=== PATIENT | female | born 1935 | race Caucasian/White ===

== ENCOUNTER 2019-08-20 11:41 | Inpatient (IN) | payer MEDICARE ==
[2019-08-20] MEDS ORDERED: SODIUM CHLORIDE 0.9% 500 ML 500 ML IV STA (11:55)
[2019-08-20 12:11] LABS: Basophils # (A) 0.1 k/uL (0-0.2); Basophils % (A) 1 %; Eosinophils # (A) 0.1 k/uL (0-0.7); Eosinophils % (A) 3 %; HCT 41.8 % (34.0-46.0); HGB 13.6 gm/dL (11.4-16.0); Lymphocytes % (A) 20 %; MCHC 32.6 g/dL (31.0-37.0); MCV 91.9 fL (80.0-100.0); Mean Platelet Volume 8.4; Monocytes # (A) 0.4 k/uL (0-1.0); Monocytes % (A) 7 %; Neutrophils # (A) 3.5 k/uL (1.3-7.7); Neutrophils % (A) 68 %; Platelet Count 164 k/uL (150-450); RBC 4.55 m/uL (3.80-5.40); RDW 13.1 % (11.5-15.5); WBC 5.1 k/uL (3.8-10.6)
--- NOTE | 2019-08-20 12:12 | ED ---
General Adult HPI - General Chief complaint: Dizziness Stated complaint: SOB Time Seen by Provider: 08/20/19 11:49 Source: patient, EMS, RN notes reviewed, old records reviewed Mode of arrival: EMS Limitations: no limitations - History of Present Illness Initial comments: 84-year-old female presents for an episode of dyspnea and lightheadedness. Patient was at [facility]. She had walked from her chair and became short of breath and felt very lightheaded. History is limited secondary to patient's baseline mental status. She has no complaints time my evaluation. Denies chest pain or dyspnea. Denies cough. Denies fever or chills. Denies abdominal pain nausea vomiting or diarrhea. Denies lower extremity swelling. Denies any pain complaints. - Related Data Allergies Allergy/AdvReac Type Severity Reaction Status Date / Time No Known Allergies Allergy Verified 08/20/19 11:49 Review of Systems ROS Statement: Those systems with pertinent positive or pertinent negative responses have been documented in the HPI. ROS Other: All systems not noted in ROS Statement are negative. Past Medical History Past Medical History: Atrial Fibrillation, Coronary Artery Disease (CAD), CVA/TIA, Hyperlipidemia, Hypertension, Thyroid Disorder History of Any Multi-Drug Resistant Organisms: None Reported Past Surgical History: No Surgical Hx Reported Past Psychological History: No Psychological Hx Reported Smoking Status: Never smoker Past Alcohol Use History: None Reported Past Drug Use History: None Reported General Exam Limitations: no limitations General appearance: alert, in no apparent distress Head exam: Present: atraumatic, normocephalic Eye exam: Present: normal appearance, PERRL ENT exam: Present: mucous membranes dry Neck exam: Present: normal inspection. Absent: tenderness, meningismus Respiratory exam: Present: normal lung sounds bilaterally. Absent: respiratory distress, wheezes, rales Cardiovascular Exam: Present: regular rate, irregular rhythm GI/Abdominal exam: Present: soft. Absent: distended, tenderness, guarding Back exam: Present: normal inspection Neurological exam: Present: alert, CN II-XII intact. Absent: oriented X3 (2), motor sensory deficit Psychiatric exam: Present: normal affect, normal mood Skin exam: Present: warm, dry, intact. Absent: cyanosis, diaphoretic Course Vital Signs 08/20/19 11:43 Temperature 97.5 F L Pulse Rate 63 Respiratory 18 Rate Blood Pressure 168/83 O2 Sat by Pulse 98 Oximetry EKG Findings - EKG Comments: EKG Findings:: EKG showing sinus rhythm with right bundle-branch block, irregular, rate of 72, IL interval 144, QRS duration 136, QTC 43, no ST segment elevation. Medical Decision Making - Medical Decision Making 84-year-old female with an episode of dyspnea, lightheadedness. Patient denying any complaints. History of dementia and history is limited. EKG showing right bundle branch block, no previous for comparison, no ST segment elevation. There is some ectopy on EKG. Chest x-ray showing a retrocardiac infiltrate. Given this patient is a poor historian. She will be admitted for close monitoring. She is initiated on IV antibiotics. Serial troponins will be obtained. Cardiology will be placed on consult. Echo will be obtained. - Lab Data Result diagrams: 08/20/19 11:50 08/20/19 11:50 Lab Results 08/20/19 08/20/19 08/20/19 Range/Units 11:50 11:50 11:50 WBC 5.1 (3.8-10.6) k/uL RBC 4.55 (3.80-5.40) m/uL Hgb 13.6 (11.4-16.0) gm/dL Hct 41.8 (34.0-46.0) % MCV 91.9 (80.0-100.0) fL MCH 30.0 (25.0-35.0) pg MCHC 32.6 (31.0-37.0) g/dL RDW 13.1 (11.5-15.5) % Plt Count 164 (150-450) k/uL Neutrophils % 68 % Lymphocytes % 20 % Monocytes % 7 % Eosinophils % 3 % Basophils % 1 % Neutrophils # 3.5 (1.3-7.7) k/uL Lymphocytes # 1.0 (1.0-4.8) k/uL Monocytes # 0.4 (0-1.0) k/uL Eosinophils # 0.1 (0-0.7) k/uL Basophils # 0.1 (0-0.2) k/uL PT 10.2 (9.0-12.0) sec INR 1.0 (<1.2) APTT 20.1 L (22.0-30.0) sec Sodium 140 (137-145) mmol/L Potassium 3.6 (3.5-5.1) mmol/L Chloride 105 (98-107) mmol/L Carbon Dioxide 26 (22-30) mmol/L Anion Gap 9 mmol/L BUN 16 (7-17) mg/dL Creatinine 0.84 (0.52-1.04) mg/dL Est GFR (CKD-EPI)AfAm 74 (>60 ml/min/1.73 sqM) Est GFR (CKD-EPI)NonAf 64 (>60 ml/min/1.73 sqM) Glucose 76 (74-99) mg/dL Calcium 9.2 (8.4-10.2) mg/dL Magnesium 2.1 (1.6-2.3) mg/dL Total Bilirubin 0.5 (0.2-1.3) mg/dL AST 28 (14-36) U/L ALT 14 (4-34) U/L Alkaline Phosphatase 68 (38-126) U/L Troponin I (0.000-0.034) ng/mL Total Protein 7.2 (6.3-8.2) g/dL Albumin 3.9 (3.5-5.0) g/dL Urine Color Urine Appearance (Clear) Urine pH (5.0-8.0) Ur Specific [place] (1.001-1.035) Urine Protein (Negative) Urine Glucose (UA) (Negative) Urine Ketones (Negative) Urine Blood (Negative) Urine Nitrite (Negative) Urine Bilirubin (Negative) Urine Urobilinogen (<2.0) mg/dL Ur Leukocyte Esterase (Negative) Urine RBC (0-5) /hpf Urine WBC (0-5) /hpf Ur Squamous Epith Cells (0-4) /hpf Urine Bacteria (None) /hpf Urine Mucus (None) /hpf 08/20/19 08/20/19 Range/Units 11:50 12:30 WBC (3.8-10.6) k/uL RBC (3.80-5.40) m/uL Hgb (11.4-16.0) gm/dL Hct (34.0-46.0) % MCV (80.0-100.0) fL MCH (25.0-35.0) pg MCHC (31.0-37.0) g/dL RDW (11.5-15.5) % Plt Count (150-450) k/uL Neutrophils % % Lymphocytes % % Monocytes % % Eosinophils % % Basophils % % Neutrophils # (1.3-7.7) k/uL Lymphocytes # (1.0-4.8) k/uL Monocytes # (0-1.0) k/uL Eosinophils # (0-0.7) k/uL Basophils # (0-0.2) k/uL PT (9.0-12.0) sec INR (<1.2) APTT (22.0-30.0) sec Sodium (137-145) mmol/L Potassium (3.5-5.1) mmol/L Chloride (98-107) mmol/L Carbon Dioxide (22-30) mmol/L Anion Gap mmol/L BUN (7-17) mg/dL Creatinine (0.52-1.04) mg/dL Est GFR (CKD-EPI)AfAm (>60 ml/min/1.73 sqM) Est GFR (CKD-EPI)NonAf (>60 ml/min/1.73 sqM) Glucose (74-99) mg/dL Calcium (8.4-10.2) mg/dL Magnesium (1.6-2.3) mg/dL Total Bilirubin (0.2-1.3) mg/dL AST (14-36) U/L ALT (4-34) U/L Alkaline Phosphatase (38-126) U/L Troponin I <0.012 (0.000-0.034) ng/mL Total Protein (6.3-8.2) g/dL Albumin (3.5-5.0) g/dL Urine Color Light Yellow Urine Appearance Clear (Clear) Urine pH 7.5 (5.0-8.0) Ur Specific [place] 1.007 (1.001-1.035) Urine Protein Trace H (Negative) Urine Glucose (UA) Negative (Negative) Urine Ketones Negative (Negative) Urine Blood Negative (Negative) Urine Nitrite Negative (Negative) Urine Bilirubin Negative (Negative) Urine Urobilinogen <2.0 (<2.0) mg/dL Ur Leukocyte Esterase Moderate H (Negative) Urine RBC 8 H (0-5) /hpf Urine WBC 19 H (0-5) /hpf Ur Squamous Epith Cells <1 (0-4) /hpf Urine Bacteria Occasional H (None) /hpf Urine Mucus Rare H (None) /hpf Disposition Clinical Impression: Dehydration, Pneumonia Disposition: ADMITTED IP TO THIS HOSP Condition: Stable Is patient prescribed a controlled substance at d/c from ED?: No Referrals: Weston James MD [Primary Care Provider] - 1-2 days Decision to Admit Reason: Admit from EC Decision Date: 08/20/19 Decision Time: 14:08
[2019-08-20 12:21] LABS: Albumin 3.9 g/dL (3.5-5.0); Calcium 9.2 mg/dL (8.4-10.2); Magnesium 2.1 mg/dL (1.6-2.3); Potassium 3.6 mmol/L (3.5-5.1); Total Bilirubin 0.5 mg/dL (0.2-1.3); Total Protein 7.2 g/dL (6.3-8.2)
[2019-08-20 12:26] LABS: Prothrombin Time 10.2 sec (9.0-12.0)
[2019-08-20 12:30] LABS: Partial Thromboplastin Time 20.1 sec (22.0-30.0)
[2019-08-20 13:24] LABS: Appearance,Urine Clear (Clear); Bacteria,Urine Occasional /hpf; Bilirubin,Urine Negative (Negative); Blood,Urine Negative (Negative); Color,Urine Light Yellow; Glucose,Urine (UA) Negative (Negative); Ketones,Urine Negative (Negative); Leukocyte Esterase,Urine Moderate (Negative); Mucus,Urine Rare /hpf; Nitrite,Urine Negative (Negative); PH, Urine 7.5 (5.0-8.0); Protein,Urine Trace (Negative); RBC,Urine 8 /hpf (0-5); Specific Gravity,Urine 1.007 (1.001-1.035); Squamous Epithelial Cell,Urine <1 /hpf (0-4); Urobilinogen,Urine <2.0 mg/dL (<2.0); WBC,Urine 19 /hpf (0-5)
--- NOTE | 2019-08-20 13:42 | XR ---
EXAMINATION TYPE: XR chest 2V DATE OF EXAM: 08/20/2019 COMPARISON: None INDICATION: Difficulty breathing short of breath TECHNIQUE: Frontal and lateral views of the chest are obtained. FINDINGS: The heart size is approaching upper limits of normal for size. The pulmonary vasculature is normal. And lateral projection there appears to be a left lower lobe infiltrate. This is not as well-visualiz ed on the frontal projection. Clinical correlation recommended.. IMPRESSION: 1. Retrocardiac infiltrate. Correlate for atelectasis and pneumonia. Follow-up can be performed as cl inically indicated.
[2019-08-20] MEDS ORDERED: ASPIRIN 325 MG TAB PO STA (14:03)
[2019-08-20] MEDS ORDERED: NALOXONE 0.4 MG/ML 1 ML VIAL IV PRN (14:04)
[2019-08-20] MEDS ORDERED: AZITHROMYCIN 500 MG in SODIUM CHLORIDE 0.9% 250 ML IVPB STA (14:09)
[2019-08-20] MEDS ORDERED: SODIUM CHLORIDE 0.9% 500 ML 500 ML IV ONE (14:09)
[2019-08-20] MEDS ORDERED: cefTRIAXone IN SWFI 1,000 MG/10 ML SYRINGE IVP STA (14:09)
[2019-08-20] MEDS: SODIUM CHLORIDE 0.9% 1,000 ML IV SCH (14:24)
[2019-08-20] MEDS: ATORVASTATIN 40 MG TAB PO SCH (20:05)
[2019-08-20] MEDS: ACETAMINOPHEN TAB 325 MG TAB PO PRN (20:05)
[2019-08-20] MEDS: GABAPENTIN 300 MG CAP PO SCH (20:05)
[2019-08-20] MEDS: APIXABAN 5 MG TAB PO SCH (20:06)
[2019-08-20] MEDS: amLODIPine 5 MG TAB PO SCH (20:06)
[2019-08-20] MEDS: METOPROLOL SUCCINATE (ER) 25 MG TAB.ER.24H PO SCH (20:06)
[2019-08-20] MEDS: SERTRALINE 25 MG TAB PO SCH (20:07)
--- NOTE | 2019-08-20 20:42 | P.HPIM ---
History of Present Illness H&P Date: 08/20/19 Chief Complaint: Short of breath, lightheaded History of present complaint: This is a pleasant 84-year-old patient of visiting physicians Dr. James. Chronic stable medical conditions include atrial fibrillation, coronary artery disease, hyperlipidemia, hypertension, hypothyroid. Patient is not a good historian. Patient not sure why she is here. As per the ER notes while she was walking to the house. She became a bit lightheaded and short of breath. Patient denies any change in speech or vision. No focal weakness. Denies any chest pain appetite is fair denies any fever and chills. No cough. Patient has a sitter at the bedside. Patient ate did eat her supper. Review of systems: GEN.: Tired EYES: None HEENT: None NECK: None RESPIRATORY: As above CARDIOVASCULAR: Denies chest pain GASTROINTESTINAL: None GENITOURINARY: None MUSCULOSKELETAL: Some joint pains] LYMPHATICS: None HEMATOLOGICAL: None PSYCHIATRY: Forgetful NEUROLOGICAL: None. Past medical history to include: Atrial fibrillation, coronary artery disease, hyperlipidemia, hypertension, hypothyroid Social history: No history of smoking or alcohol. Family history: Patient does not remember Physical examination: VITAL SIGNS: 97, 66, 18, 168/83, 98% room air GENERAL: BMI 21% 6, sitting up in bed, watching TV. EYES: Pupils equal. Conjunctiva normal. HEENT: External appearance of nose and ears normal, oral cavity grossly normal. NECK: JVD not raised; masses not palpable. HEART: First and second heart sounds are normal; no edema. LUNGS: Respiratory rate normal; clear to auscultation. ABDOMEN: Soft, nontender, liver spleen not palpable, no masses palpable. PSYCH: Clarifier Operator some simple questions otherwise forgetfull. NEUROLOGICAL: Cranial nerves grossly intact; no facial asymmetry, power and sensation grossly intact. LYMPHATICS: No lymph nodes palpable in the axilla and neck INVESTIGATIONS, reviewed in the clinical context: White count 5.1 hemoglobin 13.6 platelets 164 potassium 3.6 creatinine 0.84 Troponin I 2 less than 0.012 UA positive for leukoesterase, WBC EKG tracing personally reviewed by me-sinus rhythm with PACs Chest x-ray film personally reviewed by me-infiltrate Assessment: -Pneumonia-lobar suspect gram-negative organism, POA -Paroxysmal atrial fibrillation currently in sinus rhythm -Coronary artery disease -Essential hypertension -Hyperlipidemia -Hypothyroid -Moderate cognitive impairment possibly from late onset Alzheimer's dementia -Possible UTI from cystitis Plan: We'll continue patient on IV ceftriaxone and Zithromax. Home medications to be resumed. Lovenox for DVT prophylaxis. Currently no family is present. We will check a pro calcitonin. Past Medical History Past Medical History: Atrial Fibrillation, Coronary Artery Disease (CAD), CVA/TIA, Hyperlipidemia, Hypertension, Thyroid Disorder History of Any Multi-Drug Resistant Organisms: None Reported Past Surgical History: No Surgical Hx Reported Past Psychological History: No Psychological Hx Reported Smoking Status: Never smoker Past Alcohol Use History: None Reported Past Drug Use History: None Reported Medications and Allergies Home Medications Medication Instructions Recorded Confirmed Type Apixaban [Eliquis] 5 mg PO BID 08/20/19 08/20/19 History Cranberry 650mg 650 mg PO QAM 08/20/19 08/20/19 History Gabapentin 600 mg PO BID 08/20/19 08/20/19 History Latanoprost [Xalatan 0.005%] 1 drop BOTH EYES HS 08/20/19 08/20/19 History Levothyroxine Sodium [Synthroid] 50 mcg PO QAM 08/20/19 08/20/19 History Methenamine Hippurate 1 gm PO BID 08/20/19 08/20/19 History Metoprolol Succinate [Toprol XL] 12.5 mg PO BID 08/20/19 08/20/19 History Rosuvastatin [Crestor] 20 mg PO HS 08/20/19 08/20/19 History Sertraline [Zoloft] 25 mg PO BID 08/20/19 08/20/19 History amLODIPine BESYLATE 5 mg PO HS 08/20/19 08/20/19 History predniSONE 2.5 mg PO QAM 08/20/19 08/20/19 History Allergies Allergy/AdvReac Type Severity Reaction Status Date / Time No Known Allergies Allergy Verified 08/20/19 17:34 Physical Exam Vitals: Vital Signs Temp Pulse Pulse Resp BP BP Pulse Ox 08/20/19 16:40 97 F L 66 18 170/77 100 08/20/19 15:00 98.1 F 82 18 158/72 08/20/19 14:30 76 19 08/20/19 14:00 86 18 162/84 98 08/20/19 13:00 88 21 153/123 98 08/20/19 12:31 20 168/83 08/20/19 11:43 97.5 F L 63 18 98 Intake and Output 08/20/19 08/20/19 08/20/19 06:59 14:59 22:59 Intake Total 236 Output Total 700 Balance -464 Intake: Oral 236 Output: Urine 700 Other: # Voids 3 Weight 58.967 kg Results CBC & Chem 7: 08/20/19 11:50 08/20/19 11:50 Labs: Abnormal Lab Results - Last 24 Hours (Table) 08/20/19 08/20/19 Range/Units 11:50 12:30 APTT 20.1 L (22.0-30.0) sec Urine Protein Trace H (Negative) Ur Leukocyte Esterase Moderate H (Negative) Urine RBC 8 H (0-5) /hpf Urine WBC 19 H (0-5) /hpf Urine Bacteria Occasional H (None) /hpf Urine Mucus Rare H (None) /hpf Thrombosis Risk Factor Assmnt - Choose All That Apply Any of the Below Risk Factors Present?: Yes Other Risk Factors: Yes Each Risk Factor Represents 3 Points: Age 75 years or older Thrombosis Risk Factor Assessment Total Risk Factor Score: 3 Thrombosis Risk Factor Assessment Level: Moderate Risk
[2019-08-20] MEDS: METHENAMINE HIPPURATE 1 GM PO SCH (22:16)
[2019-08-20] MEDS: LATANOPROST 0.005% OPHTH DROPS 2.5 ML BTL BOTH EYES SCH (23:45)
[2019-08-21] MEDS: LEVOTHYROXINE 50 MCG TAB PO SCH (06:12)
[2019-08-21 07:32] LABS: Basophils % (A) 1 %; Eosinophils # (A) 0.1 k/uL (0-0.7); Eosinophils % (A) 3 %; HCT 41.2 % (34.0-46.0); HGB 13.5 gm/dL (11.4-16.0); Lymphocytes % (A) 22 %; MCH 29.6 pg (25.0-35.0); MCHC 32.7 g/dL (31.0-37.0); MCV 90.5 fL (80.0-100.0); Mean Platelet Volume 8.3; Monocytes # (A) 0.4 k/uL (0-1.0); Monocytes % (A) 8 %; Neutrophils % (A) 64 %; Platelet Count 203 k/uL (150-450); RBC 4.55 m/uL (3.80-5.40); RDW 12.9 % (11.5-15.5); WBC 4.7 k/uL (3.8-10.6)
--- NOTE | 2019-08-21 08:42 | P.CRDCN ---
History of Present Illness Consult date: 08/21/19 Consult reason: chest pain History of present illness: This is an 84-year-old female with past medical history of paroxysmal atrial fibrillation on eliquis, coronary artery disease, hypertension, hyperlipidemia, hypothyroidism, dementia. Patient apparently developed shortness of breath and lightheadedness at home. There is no complaints of chest pain. At the time of this evaluation. Patient denies having any chest pain, shortness of breath no lightheadedness or dizziness. No abdominal pain, no nausea or vomiting. No edema. She does not know why she is in the hospital. Unable to obtain a patient follows with a filler picker. Patient is a poor historian secondary to dementia. Initial vital signs afebrile, blood pressure 160/83, heart rate 63, pulse ox 98% on room air. EKG reveals sinus mechanism a right bundle branch block with occasional PACs. Laboratory studies: CBC, CMP all within normal limits. Troponins negative on 3 draws. Urinalysis with leukoesterase moderate, the PVCs 19 bacteria occasional. Pro-Calcitonin 0.05. Chest x-ray reveals retrocardiac infiltrate, atelectasis and pneumonia. Review Of Systems: Constitutional: No fever, no chills, no night sweats. No weight change. No weakness, fatigue or lethargy. No daytime sleepiness. EENT: Reports headache. No blurred vision or double vision, no loss of vision. No loss of Hearing, no ringing in the ears, no dizziness. No nasal drainage or congestion. No epistaxis. No sore throat. Lungs: No shortness of breath, cough, no sputum production. No wheezing. Cardiovascular: No chest pain, no lower extremity edema. No palpitations. No paroxysmal nocturnal dyspnea. No orthopnea. No lightheadedness or dizziness. No syncopal episodes. Abdominal: No abdominal pain. No nausea, vomiting. No diarrhea. No constipation. No bloody or tarry stools.. No loss of appetite. Genitourinary: No dysuria, increased frequency, urgency. No urinary retention. Musculoskeletal: No myalgias. No muscle weakness, no gait dysfunction, no frequent falls. No back pain. No neck pain. Integumentary: No wounds, no lesions. No rash or pruritus. No unusual bruising. No change in hair or nails. Neurologic: No aphasia. No facial droop. No head injury. No headache. No paralysis. No paresthesia. Psychiatric: No depression. Reports anxiety. No mood swings. Endocrine: No abnormal blood sugars. No weight change. No excessive sweating or thirst. No cold intolerance. No weight change. Gen: This is an 84-year-old female. Patient is resting in bed and appears to be comfortable and in no acute distress. VS: Afebrile, heart rate 68, blood pressure 130/74, pulse ox 96% on room air HEENT: Head is atraumatic, normocephalic. Pupils equal, round. Sclerae is anicteric. NECK: Supple. No JVD. No lymphadenopathy. No thyromegaly. LUNGS: Clear to auscultation. No wheezes or rhonchi. No intercostal retractions. HEART: Irregular rate and rhythm. No murmur. ABDOMEN: Soft. Bowel sounds are present. No masses. No tenderness. EXTREMITIES: No pedal edema. No calf tenderness. NEUROLOGICAL: Patient is awake, alert and oriented x3. Cranial nerves 2 through 12 are grossly intact. Assessment: Patient denies chest pain. Troponins are unremarkable. No cardiac ischemia noted. Possible pneumonia Paroxysmal atrial fibrillation currently in a sinus rhythm Hypertension Hyperlipidemia Hypothyroidism Dementia Plan: Obtain 2-D echocardiogram and Doppler study to assess cardiac structure and function Check orthostatic vital signs Continue eliquis and Toprol-XL 12.5 mg twice daily Obtain TSH, free T4 level Repeat chest x-ray Further recommendations to follow based upon clinical course Thank you kindly for this consultation Nurse practitioner note has been reviewed, I agree with documented findings and plan of care. Patient was seen and examined. Past Medical History Past Medical History: Atrial Fibrillation, Coronary Artery Disease (CAD), CVA/TIA, Hyperlipidemia, Hypertension, Thyroid Disorder History of Any Multi-Drug Resistant Organisms: None Reported Past Surgical History: No Surgical Hx Reported Past Psychological History: No Psychological Hx Reported Smoking Status: Never smoker Past Alcohol Use History: None Reported Past Drug Use History: None Reported Medications and Allergies Home Medications Medication Instructions Recorded Confirmed Type Apixaban [Eliquis] 5 mg PO BID 08/20/19 08/20/19 History Cranberry 650mg 650 mg PO QAM 08/20/19 08/20/19 History Gabapentin 600 mg PO BID 08/20/19 08/20/19 History Latanoprost [Xalatan 0.005%] 1 drop BOTH EYES HS 08/20/19 08/20/19 History Levothyroxine Sodium [Synthroid] 50 mcg PO QAM 08/20/19 08/20/19 History Methenamine Hippurate 1 gm PO BID 08/20/19 08/20/19 History Metoprolol Succinate [Toprol XL] 12.5 mg PO BID 08/20/19 08/20/19 History Rosuvastatin [Crestor] 20 mg PO HS 08/20/19 08/20/19 History Sertraline [Zoloft] 25 mg PO BID 08/20/19 08/20/19 History amLODIPine BESYLATE 5 mg PO HS 08/20/19 08/20/19 History predniSONE 2.5 mg PO QAM 08/20/19 08/20/19 History Allergies Allergy/AdvReac Type Severity Reaction Status Date / Time No Known Allergies Allergy Verified 08/20/19 17:34 Physical Exam Vitals: Vital Signs Temp Pulse Pulse Resp BP BP Pulse Ox 08/21/19 04:38 97.9 F 68 18 130/74 96 08/21/19 00:50 98.2 F 65 18 128/72 95 08/20/19 22:08 98.1 F 73 16 177/83 97 08/20/19 16:40 97 F L 66 18 170/77 100 08/20/19 15:00 98.1 F 82 18 158/72 08/20/19 14:30 76 19 08/20/19 14:00 86 18 162/84 98 08/20/19 13:00 88 21 153/123 98 08/20/19 12:31 20 168/83 08/20/19 11:43 97.5 F L 63 18 168/83 98 Intake and Output 08/20/19 08/21/19 08/21/19 22:59 06:59 14:59 Intake Total 236 480 Output Total 700 600 Balance -464 -120 Intake: Oral 236 480 Output: Urine 700 600 Other: Voiding Method Incontinent # Voids 3 Weight 60.5 kg Results 08/21/19 06:50 08/20/19 11:50 Cardiac Enzymes 08/20/19 08/20/19 08/20/19 Range/Units 11:50 11:50 17:43 AST 28 (14-36) U/L Troponin I <0.012 <0.012 (0.000-0.034) ng/mL 08/20/19 Range/Units 23:34 AST (14-36) U/L Troponin I 0.018 (0.000-0.034) ng/mL Coagulation 08/20/19 Range/Units 11:50 PT 10.2 (9.0-12.0) sec APTT 20.1 L (22.0-30.0) sec CBC 08/20/19 08/21/19 Range/Units 11:50 06:50 WBC 5.1 4.7 (3.8-10.6) k/uL RBC 4.55 4.55 (3.80-5.40) m/uL Hgb 13.6 13.5 (11.4-16.0) gm/dL Hct 41.8 41.2 (34.0-46.0) % Plt Count 164 203 (150-450) k/uL Comprehensive Metabolic Panel 08/20/19 Range/Units 11:50 Sodium 140 (137-145) mmol/L Potassium 3.6 (3.5-5.1) mmol/L Chloride 105 (98-107) mmol/L Carbon Dioxide 26 (22-30) mmol/L BUN 16 (7-17) mg/dL Creatinine 0.84 (0.52-1.04) mg/dL Glucose 76 (74-99) mg/dL Calcium 9.2 (8.4-10.2) mg/dL AST 28 (14-36) U/L ALT 14 (4-34) U/L Alkaline Phosphatase 68 (38-126) U/L Total Protein 7.2 (6.3-8.2) g/dL Albumin 3.9 (3.5-5.0) g/dL Current Medications Generic Name Dose Route Start Last Admin Trade Name Freq PRN Reason Stop Dose Admin Acetaminophen 650 mg 08/20/19 14:04 08/20/19 20:05 Tylenol Tab PO 650 mg Q6HR PRN Administration Mild Pain or Fever > 100.5 Amlodipine Besylate 5 mg 08/20/19 21:00 08/20/19 20:06 Norvasc PO 5 mg HS AMANDEEP Administration Apixaban 5 mg 08/20/19 21:00 08/20/19 20:06 Eliquis PO 5 mg BID AMANDEEP Administration Atorvastatin Calcium 40 mg 08/20/19 21:00 08/20/19 20:05 Lipitor PO 40 mg HS AMANDEEP Administration Gabapentin 600 mg 08/20/19 21:00 08/20/19 20:05 Neurontin PO 600 mg BID AMANDEEP Administration Sodium Chloride 1,000 mls @ 20 mls/hr 08/20/19 14:15 08/20/19 14:24 Saline 0.9% IV 20 mls/hr .Q24H AMANDEEP Administration Ceftriaxone Sodium 1 gm/ 50 mls @ 100 mls/hr 08/21/19 09:00 Sodium Chloride IVPB Q24HR AMANDEEP Latanoprost 1 drops 08/20/19 21:00 08/20/19 23:45 Xalatan 0.005% BOTH EYES 1 drops HS AMANDEEP Administration Levothyroxine Sodium 50 mcg 08/21/19 06:30 08/21/19 06:12 Synthroid PO 50 mcg 0630 AMANDEEP Administration Metoprolol Succinate 12.5 mg 08/20/19 21:00 08/20/19 20:06 Toprol Xl PO 12.5 mg BID AMANDEEP Administration Naloxone HCl 0.2 mg 08/20/19 14:04 Narcan IV Q2M PRN Opioid Reversal Non-Formulary Medication 1 gm 08/20/19 21:00 08/20/19 22:16 Methenamine Hippurate [Methenamine Hippurate] PO Not Given BID AMANDEEP Prednisone 2.5 mg 08/21/19 09:00 PO QAM AMANDEEP Sertraline HCl 25 mg 08/20/19 21:00 08/20/19 20:07 Zoloft PO 25 mg BID AMANDEEP Administration Intake and Output 08/20/19 08/21/19 08/21/19 22:59 06:59 14:59 Intake Total 236 480 Output Total 700 600 Balance -464 -120 Intake: Oral 236 480 Output: Urine 700 600 Other: Voiding Method Incontinent # Voids 3 Weight 60.5 kg 08/21/19 06:50 08/20/19 11:50
[2019-08-21] MEDS: APIXABAN 5 MG TAB PO SCH ×2 (08:50→20:05)
[2019-08-21] MEDS: METOPROLOL SUCCINATE (ER) 25 MG TAB.ER.24H PO SCH ×2 (08:50→20:06)
[2019-08-21] MEDS: GABAPENTIN 300 MG CAP PO SCH ×2 (08:50→20:05)
[2019-08-21] MEDS: METHENAMINE HIPPURATE 1 GM PO SCH ×2 (08:50→22:07)
[2019-08-21] MEDS: SERTRALINE 25 MG TAB PO SCH ×2 (08:50→20:05)
[2019-08-21 10:07] VITALS: BMI 22.1
[2019-08-21 10:12] LABS: T4, Free (Free Thyroxine) 1.3 ng/dL (0.78-2.19)
--- NOTE | 2019-08-21 14:00 | ECHOF ---
Referral Reason:dyspnea MEASUREMENTS -------- HEIGHT: 165.1 cm WEIGHT: 60.3 kg BP: RVIDd: 2.5 cm (< 3.3) IVSd: 1.4 cm (0.6 - 1.1) LVIDd: 3.0 cm (3.9 - 5.3) LVPWd: 1.4 cm (0.6 - 1.1) IVSs: 2.0 cm LVIDs: 1.1 cm LVPWs: 1.8 cm Ao Diam: 2.7 cm (2.0 - 3.7) AV Cusp: 1.9 cm (1.5 - 2.6) LA Diam: 2.6 cm (2.7 - 3.8) MV EXCURSION: 7.614 mm (> 18.000) MV EF SLOPE: 34 mm/s (70 - 150) EPSS: 0.6 cm MV E Lukas: 0.49 m/s MV DecT: 245 ms MV A Lukas: 0.68 m/s MV E/A Ratio: 0.71 RAP: 5.00 mmHg RVSP: 36.00 mmHg FINDINGS -------- Sinus rhythm. This was a technically good study. The left ventricular size is normal. There is moderate concentric left ventricular hypertrophy. O verall left ventricular systolic function is normal with, an EF between 55 - 60 %. The right ventricle is normal in size. The left atrial size is normal. The right atrial size is normal. The aortic valve is trileaflet and appears structurally normal. The mitral valve is normal. There is trace mitral regurgitation. The tricuspid valve appears structurally normal. Moderate tricuspid regurgitation present. There is mild pulmonary hypertension. The right ventricular systolic pressure, as measured by Doppler, is 36.00mmHg. There is no pulmonic regurgitation present. The aortic root size is normal. IVC Not well visulized. There is a small, generalized pericardial effusion present. CONCLUSIONS -------- 1. Sinus rhythm. 2. This was a technically good study. 3. The left ventricular size is normal. 4. There is moderate concentric left ventricular hypertrophy. 5. Overall left ventricular systolic function is normal with, an EF between 55 - 60 %. 6. The right ventricle is normal in size. 7. The left atrial size is normal. 8. The right atrial size is normal. 9. The aortic valve is trileaflet and appears structurally normal. 10. The mitral valve is normal. 11. There is trace mitral regurgitation. 12. The tricuspid valve appears structurally normal. 13. Moderate tricuspid regurgitation present. 14. There is mild pulmonary hypertension. 15. The right ventricular systolic pressure, as measured by Doppler, is 36.00mmHg. 16. There is no pulmonic regurgitation present. 17. The aortic root size is normal. 18. IVC Not well visulized. 19. There is a small, generalized pericardial effusion present. SECURITIES ANALYST: Ava Gilliland RDCS
--- NOTE | 2019-08-21 17:03 | P.PN ---
Progress Note - Text Progress Note Date: 08/21/19 Chief Complaint: Short of breath, lightheaded History of present complaint: This is a pleasant 84-year-old patient of visiting physicians Dr. James. Chronic stable medical conditions include atrial fibrillation, coronary artery disease, hyperlipidemia, hypertension, hypothyroid. Patient is not a good historian. Patient not sure why she is here. As per the ER notes while she was walking to the house. She became a bit lightheaded and short of breath. Patient denies any change in speech or vision. No focal weakness. Denies any chest pain appetite is fair denies any fever and chills. No cough. Patient has a sitter at the bedside. Patient ate did eat her supper. Admitted with pneumonia. Today-looking more comfortable. Did tolerate her diet. Very slight cough. Breathing better. Review of systems: Was done for constitutional, cardiovascular, GI, pulmonary. relevant finding as above Active Medications Acetaminophen (Tylenol Tab) 650 mg PO Q6HR PRN PRN Reason: Mild Pain or Fever > 100.5 Last Admin: 08/20/19 20:05 Dose: 650 mg Documented by: Amlodipine Besylate (Norvasc) 5 mg PO [facility] Last Admin: 08/20/19 20:06 Dose: 5 mg Documented by: Apixaban (Eliquis) 5 mg PO BID [facility] Last Admin: 08/21/19 08:50 Dose: 5 mg Documented by: Atorvastatin Calcium (Lipitor) 40 mg PO [facility] Last Admin: 08/20/19 20:05 Dose: 40 mg Documented by: Gabapentin (Neurontin) 600 mg PO BID [facility] Last Admin: 08/21/19 08:50 Dose: 600 mg Documented by: Sodium Chloride (Saline 0.9%) 1,000 mls @ 20 mls/hr IV .Q24H [facility] Last Admin: 08/20/19 14:24 Dose: 20 mls/hr Documented by: Ceftriaxone Sodium 1 gm/ (Sodium Chloride) 50 mls @ 100 mls/hr IVPB Q24HR [facility] Last Admin: 08/21/19 08:49 Dose: 100 mls/hr Documented by: Latanoprost (Xalatan 0.005%) 1 drops BOTH EYES [facility] Last Admin: 08/20/19 23:45 Dose: 1 drops Documented by: Levothyroxine Sodium (Synthroid) 50 mcg PO 0630 [facility] Last Admin: 08/21/19 06:12 Dose: 50 mcg Documented by: Metoprolol Succinate (Toprol Xl) 12.5 mg PO BID [facility] Last Admin: 08/21/19 08:50 Dose: 12.5 mg Documented by: Naloxone HCl (Narcan) 0.2 mg IV Q2M PRN PRN Reason: Opioid Reversal Non-Formulary Medication (Methenamine Hippurate [Methenamine Hippurate]) 1 gm PO BID [facility] Last Admin: 08/21/19 08:50 Dose: Not Given Documented by: Prednisone () 2.5 mg PO QAM [facility] Sertraline HCl (Zoloft) 25 mg PO BID [facility] Last Admin: 08/21/19 08:50 Dose: 25 mg Documented by: Physical examination: VITAL SIGNS: 97.7, 55, 18, 132/6084, 94% on room air GENERAL: Propped up, eating, appears comfortable EYES: Pupils equal. Conjunctiva normal. HEENT: External appearance of nose and ears normal, oral cavity grossly normal. NECK: JVD not raised; masses not palpable. HEART: First and second heart sounds are normal; no edema. LUNGS: Respiratory rate normal; clear to auscultation. ABDOMEN: Soft, nontender, liver spleen not palpable, no masses palpable. PSYCH: Able to answer simple questions INVESTIGATIONS, reviewed in the clinical context: White count 4.7 hemoglobin 13.5 platelets 203 TSH 5.1, pro calcitonin 0.05 Previous testing White count 5.1 hemoglobin 13.6 platelets 164 potassium 3.6 creatinine 0.84 Troponin I 2 less than 0.012 UA positive for leukoesterase, WBC EKG tracing personally reviewed by me-sinus rhythm with PACs Chest x-ray film personally reviewed by me-infiltrate Assessment: -Pneumonia-lobar suspect gram-negative organism, POA -Paroxysmal atrial fibrillation currently in sinus rhythm -Coronary artery disease -Essential hypertension -Hyperlipidemia -Hypothyroid -Moderate cognitive impairment possibly from late onset Alzheimer's dementia -Possible UTI from cystitis Plan: This is the patient over to oral antibiotics. Doing better. Discussed with the patient.
[2019-08-21] MEDS: SODIUM CHLORIDE 0.9% 1,000 ML IV SCH (18:14)
[2019-08-21] MEDS: predniSONE 2.5 MG TAB PO SCH (18:15)
[2019-08-21] MEDS: amLODIPine 5 MG TAB PO SCH (20:05)
[2019-08-21] MEDS: CEFDINIR 300 MG CAP PO SCH (20:05)
[2019-08-21] MEDS: ATORVASTATIN 40 MG TAB PO SCH (20:05)
[2019-08-21] MEDS: LATANOPROST 0.005% OPHTH DROPS 2.5 ML BTL BOTH EYES SCH (20:05)
[2019-08-22] MEDS: LEVOTHYROXINE 50 MCG TAB PO SCH (05:46)
--- NOTE | 2019-08-22 08:22 | XR ---
EXAMINATION TYPE: XR chest 2V DATE OF EXAM: 08/22/2019 HISTORY: Possible pneumonia. REFERENCE: Previous study dated 08/20/2019. FINDINGS: The patient is a left retrocardiac infiltrate has largely cleared. Some residual atelectasi s or pneumonia persists. The right lung is clear. Pleural space are clear. Heart size is upper limits of normal. There is a moderate S-shaped scoliosis convex to the left in the thoracic region and to t he right in the lumbar region. IMPRESSION: IMPROVED AERATION, LEFT LUNG BASE.
[2019-08-22] MEDS: CEFDINIR 300 MG CAP PO SCH ×2 (08:57→20:36)
[2019-08-22] MEDS: GABAPENTIN 300 MG CAP PO SCH ×2 (08:57→20:36)
[2019-08-22] MEDS: APIXABAN 5 MG TAB PO SCH ×2 (08:57→20:36)
[2019-08-22] MEDS: predniSONE 2.5 MG TAB PO SCH (08:57)
[2019-08-22] MEDS: SERTRALINE 25 MG TAB PO SCH ×2 (08:57→20:36)
[2019-08-22] MEDS: METOPROLOL SUCCINATE (ER) 25 MG TAB.ER.24H PO SCH ×2 (08:57→20:36)
[2019-08-22] MEDS: METHENAMINE HIPPURATE 1 GM PO SCH (08:58)
--- NOTE | 2019-08-22 11:55 | P.PN ---
Subjective Progress Note Date: 08/22/19 This is an 84-year-old female with past medical history of paroxysmal atrial fibrillation on eliquis, coronary artery disease, hypertension, hyperlipidemia, hypothyroidism, dementia. Patient apparently developed shortness of breath and lightheadedness at home. There is no complaints of chest pain. At the time of this evaluation. Patient denies having any chest pain, shortness of breath no lightheadedness or dizziness. No abdominal pain, no nausea or vomiting. No edema. She does not know why she is in the hospital. Unable to obtain a patient follows with a prescription benefit specialist. Patient is a poor historian secondary to dementia. Initial vital signs afebrile, blood pressure 160/83, heart rate 63, pulse ox 98% on room air. EKG reveals sinus mechanism a right bundle branch block with occasional PACs. Laboratory studies: CBC, CMP all within normal limits. Troponins negative on 3 draws. Urinalysis with leukoesterase moderate, the PVCs 19 bacteria occasional. Pro-Calcitonin 0.05. Chest x-ray reveals retrocardiac infiltrate, atelectasis and pneumonia. 08/21: Repeat chest x-ray reveals improved aeration left lung base. Echocardiogram reveals EF of 55-60% with mild pulmonary hypertension, trace mitral regurgitation, moderate tricuspid regurgitation, small generalized pericardial effusion. Orthostatic vital signs are positive. Patient's nursing relates that she has had dizziness getting up to the bathroom and there have been significant mentation issues through the night. Patient continues to deny having any chest pain or shortness of breath. Last repeat CBC within normal limits, TSH 5.170 and free T4 1.3. Gen: This is an 84-year-old female. Patient is seen returning from chest x-ray. Patient is in wheelchair and appears to be in no acute distress. HEENT: Head is atraumatic, normocephalic. Pupils equal, round. Sclerae is anicteric. NECK: Supple. No JVD. No lymphadenopathy. No thyromegaly. LUNGS: Clear to auscultation. No wheezes or rhonchi. No intercostal retractions. HEART: Irregular rate and rhythm. No murmur. ABDOMEN: Soft. Bowel sounds are present. No masses. No tenderness. EXTREMITIES: No pedal edema. No calf tenderness. NEUROLOGICAL: Patient is awake, alert and oriented to person and she is aware she is in the hospital. Cranial nerves 2 through 12 are grossly intact. No focal neural deficits Assessment: Patient denies chest pain. Troponins are unremarkable. No cardiac ischemia noted. Possible pneumonia Paroxysmal atrial fibrillation currently in a sinus rhythm Hypertension Hyperlipidemia Hypothyroidism Dementia Orthostatic hypotension Plan: Start IV fluids 100 mL per hour for 10 hours and then KVO. Change amlodipine to lower dose of 2.5 mg at bedtime. Continue eliquis and Toprol-XL 12.5 mg twice daily. If no further symptoms, patient may be discharged home in the morning. Further recommendations to follow based upon clinical course. Thank you kindly for this consultation. Nurse practitioner note has been reviewed, I agree with documented findings and plan of care. Patient was seen and examined. Objective - Vital Signs Vital signs: Vital Signs Temp 98.0 F 08/22/19 03:55 Pulse 68 08/22/19 03:55 Resp 16 08/22/19 03:55 BP 119/61 08/22/19 03:55 Pulse Ox 96 08/22/19 03:55 Intake & Output 08/21/19 08/22/19 08/22/19 18:59 06:59 18:59 Intake Total 290 1417 Output Total 1200 Balance 290 217 Weight 60.5 kg 57 kg Intake: Intake, IV Titration 50 220 Amount Sodium Chloride 0.9% 1, 220 000 ml @ 20 mls/hr IV . Q24H [facility] Rx#:[id number] cefTRIAXone 1 gm In 50 Sodium Chloride 0.9% 50 ml @ 100 mls/hr IVPB Q24HR [facility] Rx#:[id number] Oral 240 1197 Output: Urine 1200 Other: Voiding Method Incontinent # Voids 2 2 # Bowel Movements 1 0 - Labs CBC & Chem 7: 08/21/19 06:50 08/20/19 11:50 Labs: Abnormal Lab Results - Last 24 Hours (Table) 08/21/19 Range/Units 06:50 TSH 5.170 H (0.465-4.680) mIU/L
[2019-08-22] MEDS: SODIUM CHLORIDE 0.9% 1,000 ML IV SCH ×2 (12:07→20:43)
[2019-08-22] MEDS: ACETAMINOPHEN TAB 325 MG TAB PO PRN ×2 (12:10→22:35)
--- NOTE | 2019-08-22 15:58 | P.PN ---
Progress Note - Text Progress Note Date: 08/22/19 Chief Complaint: Short of breath, lightheaded History of present complaint: This is a pleasant 84-year-old patient of visiting physicians Dr. James. Chronic stable medical conditions include atrial fibrillation, coronary artery disease, hyperlipidemia, hypertension, hypothyroid. Patient is not a good historian. Patient not sure why she is here. As per the ER notes while she was walking to the house. She became a bit lightheaded and short of breath. Patient denies any change in speech or vision. No focal weakness. Denies any chest pain appetite is fair denies any fever and chills. No cough. Patient has a sitter at the bedside. Patient ate did eat her supper. Admitted with pneumonia. Today-comfortable. Tolerating some diet. No complaints. Review of systems: Was done for constitutional, cardiovascular, GI, pulmonary. relevant finding as above Active Medications Acetaminophen (Tylenol Tab) 650 mg PO Q6HR PRN PRN Reason: Mild Pain or Fever > 100.5 Last Admin: 08/22/19 12:10 Dose: 650 mg Documented by: Amlodipine Besylate (Norvasc) 2.5 mg PO [facility] Apixaban (Eliquis) 5 mg PO BID [facility] Last Admin: 08/22/19 08:57 Dose: 5 mg Documented by: Atorvastatin Calcium (Lipitor) 40 mg PO [facility] Last Admin: 08/21/19 20:05 Dose: 40 mg Documented by: Cefdinir (Omnicef) 300 mg PO BID [facility] Last Admin: 08/22/19 08:57 Dose: 300 mg Documented by: Gabapentin (Neurontin) 600 mg PO BID [facility] Last Admin: 08/22/19 08:57 Dose: 600 mg Documented by: Sodium Chloride (Saline 0.9%) 1,000 mls @ 100 mls/hr IV .Q10H [facility] Stop: 08/22/19 22:01 Last Admin: 08/22/19 12:07 Dose: 100 mls/hr Documented by: Latanoprost (Xalatan 0.005%) 1 drops BOTH EYES [facility] Last Admin: 08/21/19 20:05 Dose: 1 drops Documented by: Levothyroxine Sodium (Synthroid) 50 mcg PO 0630 [facility] Last Admin: 08/22/19 05:46 Dose: 50 mcg Documented by: Metoprolol Succinate (Toprol Xl) 12.5 mg PO BID [facility] Last Admin: 08/22/19 08:57 Dose: 12.5 mg Documented by: Naloxone HCl (Narcan) 0.2 mg IV Q2M PRN PRN Reason: Opioid Reversal Non-Formulary Medication (Methenamine Hippurate [Methenamine Hippurate]) 1 gm PO BID [facility] Last Admin: 08/22/19 08:58 Dose: Not Given Documented by: Prednisone () 2.5 mg PO QAM [facility] Last Admin: 08/22/19 08:57 Dose: 2.5 mg Documented by: Sertraline HCl (Zoloft) 25 mg PO BID [facility] Last Admin: 08/22/19 08:57 Dose: 25 mg Documented by: Physical examination: VITAL SIGNS: 97.3, 63, 135/63, 97% on room air GENERAL: Sitting up in bed,, comfortable EYES: Pupils equal. Conjunctiva normal. HEENT: External appearance of nose and ears normal, oral cavity grossly normal. NECK: JVD not raised; masses not palpable. HEART: First and second heart sounds are normal; no edema. LUNGS: Respiratory rate normal; clear to auscultation. ABDOMEN: Soft, nontender, liver spleen not palpable, no masses palpable. PSYCH: Able to answer simple questions INVESTIGATIONS, reviewed in the clinical context: White count 4.7 hemoglobin 13.5 platelets 203 TSH 5.1, pro calcitonin 0.05 Previous testing White count 5.1 hemoglobin 13.6 platelets 164 potassium 3.6 creatinine 0.84 Troponin I 2 less than 0.012 UA positive for leukoesterase, WBC EKG tracing personally reviewed by me-sinus rhythm with PACs Chest x-ray film personally reviewed by me-infiltrate Assessment: -Pneumonia-lobar suspect gram-negative organism, POA -Paroxysmal atrial fibrillation currently in sinus rhythm -Coronary artery disease -Essential hypertension -Hyperlipidemia -Hypothyroid -Moderate cognitive impairment possibly from late onset Alzheimer's dementia -Possible UTI from cystitis Plan: Continue with oral antibiotics. Doing much better. Can be discharged tomorrow.
[2019-08-22 20:32] VITALS: RESP 20
[2019-08-22] MEDS: ATORVASTATIN 40 MG TAB PO SCH (20:36)
[2019-08-22] MEDS: LATANOPROST 0.005% OPHTH DROPS 2.5 ML BTL BOTH EYES SCH (20:40)
[2019-08-22] MEDS ORDERED: amLODIPine 2.5 MG TAB PO SCH (21:00)
[2019-08-23] MEDS: METHENAMINE HIPPURATE 1 GM PO SCH ×2 (04:21→10:16)
[2019-08-23] MEDS: LEVOTHYROXINE 50 MCG TAB PO SCH (06:26)
[2019-08-23] MEDS: GABAPENTIN 300 MG CAP PO SCH (10:13)
[2019-08-23] MEDS: CEFDINIR 300 MG CAP PO SCH (10:13)
[2019-08-23] MEDS: METOPROLOL SUCCINATE (ER) 25 MG TAB.ER.24H PO SCH (10:13)
[2019-08-23] MEDS: APIXABAN 5 MG TAB PO SCH (10:13)
[2019-08-23] MEDS: SERTRALINE 25 MG TAB PO SCH (10:14)
[2019-08-23] MEDS: predniSONE 2.5 MG TAB PO SCH (10:14)
--- NOTE | 2019-08-23 11:56 | P.PN ---
Subjective Progress Note Date: 08/23/19 This is an 84-year-old female with past medical history of paroxysmal atrial fibrillation on eliquis, coronary artery disease, hypertension, hyperlipidemia, hypothyroidism, dementia. Patient apparently developed shortness of breath and lightheadedness at home. Cardiology had seen the patient over the weekend, felt that her chest discomfort was atypical in nature. She does have a possible pneumonia. Her blood pressure this morning 140/70. Echocardiogram with Doppler study reveals a normal left ventricular systolic function with moderate tricuspid regurgitation. Overall the patient states she's feeling well today. Objective - Vital Signs Vital signs: Vital Signs Temp 97.6 F 08/22/19 20:00 Pulse 63 08/23/19 04:00 Resp 20 08/23/19 04:00 BP 144/77 08/23/19 04:00 Pulse Ox 97 08/23/19 04:00 Intake & Output 08/22/19 08/23/19 08/23/19 18:59 06:59 18:59 Intake Total 800 500 20 Output Total 900 Balance 800 -400 20 Weight 60 kg Intake: Intake, IV Titration 200 500 Amount Sodium Chloride 0.9% 1, 200 500 000 ml @ 100 mls/hr IV . Q10H [facility] Rx#:[id number] Oral 600 20 Output: Urine 900 Other: Voiding Method Incontinent # Voids 1 1 1 # Bowel Movements 1 1 - Exam PHYSICAL EXAMINATION: GENERAL: 84-year-old female in no acute distress at the time of my examination HEENT: Head is atraumatic, normocephalic. Pupils equal, round. Sclera anicteric. Conjunctiva are clear. Mucous membranes of the mouth are moist. Neck is supple. There is no elevated jugular venous pressure. No carotid bruit is heard. HEART EXAMINATION: Heart S1, S2 a systolic murmur is heard . CHEST EXAMINATION: Lungs are clear to auscultation and precussion. No chest wall tenderness is noted on palpation or with deep breathing. ABDOMEN: Soft, nontender. Bowel sounds are heard. No organomegaly noted. EXTREMITIES: 2+ peripheral pulses with no evidence of peripheral edema and no calf tenderness noted. NEUROLOGIC patient is awake, alert and oriented 2 . - Labs CBC & Chem 7: 08/21/19 06:50 08/20/19 11:50 Assessment and Plan Plan: Assessment and Plan #1 Chest discomfort with atypical features for acute coronary syndrome. Troponins unremarkable, no evidence of acute coronary syndrome. #2 Possible pneumonia #3 Paroxysmal atrial fibrillation currently in a sinus rhythm #4 Hypertension #5 Hyperlipidemia #6 Hypothyroidism #7 Dementia Plan From cardiology's perspective, we will continue this patient on her current medications. We will follow her along with you now on an as-needed basis only, please don't hesitate to call with any questions. DNP note has been reviewed, I agree with a documented findings and plan of care. Patient was seen and examined.
[2019-08-23 15:01] VITALS: BP 130/68; PULSE 60; TEMP 97.5
--- NOTE | 2019-08-23 18:43 | P.DS ---
Providers Date of admission: 08/22/19 11:30 Expected date of discharge: 08/23/19 Attending physician: Jagdeep Ambrosio Consults: 08/20/19 14:05 Consult Physician Routine Consulting Provider: Tim Conte Consult Reason/Comments: CP R/O Do you want consulting provider notified?: Yes Primary care physician: Weston James MD Hospital Course: Chief Complaint: Short of breath, lightheaded History of present complaint: This is a pleasant 84-year-old patient of visiting physicians Dr. James. Chronic stable medical conditions include atrial fibrillation, coronary artery disease, hyperlipidemia, hypertension, hypothyroid. Patient is not a good historian. Patient not sure why she is here. As per the ER notes while she was walking to the house. She became a bit lightheaded and short of breath. Patient denies any change in speech or vision. No focal weakness. Denies any chest pain appetite is fair denies any fever and chills. No cough. Patient has a sitter at the bedside. Patient ate did eat her supper. Admitted with pneumonia. Started on ceftriaxone. Responded well. Today-comfortable. No respiratory symptoms. Sitting up in bed. Did have her diet.. Consultation: Dr. Hotl from cardiology Physical examination: VITAL SIGNS: 97.7, 62, 18, 121/71, 98% on room air GENERAL: Sitting up in bed,, comfortable EYES: Pupils equal. Conjunctiva normal. HEENT: External appearance of nose and ears normal, oral cavity grossly normal. NECK: JVD not raised; masses not palpable. HEART: First and second heart sounds are normal; no edema. LUNGS: Respiratory rate normal; clear to auscultation. ABDOMEN: Soft, nontender, liver spleen not palpable, no masses palpable. PSYCH: Able to answer simple questions INVESTIGATIONS, reviewed in the clinical context: White count 4.7 hemoglobin 13.5 platelets 203 TSH 5.1, pro calcitonin 0.05 Previous testing White count 5.1 hemoglobin 13.6 platelets 164 potassium 3.6 creatinine 0.84 Troponin I 2 less than 0.012 UA positive for leukoesterase, WBC EKG tracing personally reviewed by me-sinus rhythm with PACs Chest x-ray film personally reviewed by me-infiltrate Assessment: -Pneumonia-lobar suspect gram-negative organism, POA -Paroxysmal atrial fibrillation currently in sinus rhythm -Coronary artery disease -Essential hypertension -Hyperlipidemia -Hypothyroid -Moderate cognitive impairment possibly from late onset Alzheimer's dementia -Possible UTI from cystitis Disposition: Home Patient Condition at Discharge: Stable Plan - Discharge Summary Discharge Rx Participant: No New Discharge Prescriptions: New Cefdinir [Omnicef] 300 mg PO BID #6 cap Continue predniSONE 2.5 mg PO QAM Rosuvastatin [Crestor] 20 mg PO HS Metoprolol Succinate [Toprol XL] 12.5 mg PO BID Methenamine Hippurate 1 gm PO BID Levothyroxine Sodium [Synthroid] 50 mcg PO QAM Gabapentin 600 mg PO BID Apixaban [Eliquis] 5 mg PO BID [facility] 650mg 650 mg PO QAM Latanoprost [Xalatan 0.005%] 1 drop BOTH EYES [facility] Sertraline [Zoloft] 25 mg PO BID [facility] amLODIPine BESYLATE 2.5 mg PO HS #0 Discharge Medication List Apixaban [Eliquis] 5 mg PO BID 08/20/19 [History] Cranberry 650mg 650 mg PO QAM 08/20/19 [History] Gabapentin 600 mg PO BID 08/20/19 [History] Latanoprost [Xalatan 0.005%] 1 drop BOTH EYES HS 08/20/19 [History] Levothyroxine Sodium [Synthroid] 50 mcg PO QAM 08/20/19 [History] Methenamine Hippurate 1 gm PO BID 08/20/19 [History] Metoprolol Succinate [Toprol XL] 12.5 mg PO BID 08/20/19 [History] Rosuvastatin [Crestor] 20 mg PO HS 08/20/19 [History] Sertraline [Zoloft] 25 mg PO BID 08/20/19 [History] predniSONE 2.5 mg PO QAM 08/20/19 [History] Cefdinir [Omnicef] 300 mg PO BID #6 cap 08/23/19 [Rx] amLODIPine BESYLATE 2.5 mg PO HS #0 08/23/19 [Rx] Follow up Appointment(s)/Referral(s): Weston James MD [Primary Care Provider] - 1-2 days (Message left with [facility], construction sales representative to contact pt to schedule follow up. ) [facility], [NON-STAFF] - Patient Instructions/Handouts: Chest Pain (DC) Activity/Diet/Wound Care/Special Instructions: Chaya [phone] Discharge Disposition: HOME SELF-CARE
== END 2019-08-23 17:50 | disposition home health service (06) | DRG 178 ==
LOC: EC 11:41 → 3SCARD 14:04 → OBSVTOIN 08-22 11:30
PROVIDERS: ADMIT Hospitalist; ATTEND Hospitalist
DX: J15.6 Pneumonia due to other Gram-negative bacteria (principal); F02.81 Dementia in other diseases classified elsewhere, unspecified severity, with behavioral disturbance; J98.11 Atelectasis; I48.0 Paroxysmal atrial fibrillation; I27.20 Pulmonary hypertension, unspecified; G30.1 Alzheimer's disease with late onset; E86.0 Dehydration; N30.90 Cystitis, unspecified without hematuria; I95.1 Orthostatic hypotension; R07.89 Other chest pain; I08.1 Rheumatic disorders of both mitral and tricuspid valves; I45.10 Unspecified right bundle-branch block; I10 Essential (primary) hypertension; I25.10 Atherosclerotic heart disease of native coronary artery without angina pectoris; E78.5 Hyperlipidemia, unspecified; E03.9 Hypothyroidism, unspecified; R32 Unspecified urinary incontinence; Z79.01 Long term (current) use of anticoagulants; Z79.890 Hormone replacement therapy; Z79.899 Other long term (current) drug therapy; Z86.73 Personal history of transient ischemic attack (TIA), and cerebral infarction without residual deficits
CPT/HCPCS: 36415; 71046; 80053; 81001; 83735; 84145; 84439; 84443; 84484; 85025; 85610; 85730; 93005; 93306; 96365; 96375; 99285

== ENCOUNTER 2019-09-28 06:26 | Emergency (ER) | payer MEDICARE ==
[2019-09-28 06:35] VITALS: TEMP 97.7
[2019-09-28] MEDS ORDERED: SODIUM CHLORIDE 0.9% 1,000 ML IV STA (06:35)
--- NOTE | 2019-09-28 06:47 | ED ---
Weakness HPI - General Chief complaint: Weakness Stated complaint: UTI Time Seen by Provider: 09/28/19 06:30 Source: EMS Mode of arrival: EMS Limitations: altered mental status - History of Present Illness Initial comments: Patient is an 84-year-old female, with history of A. fib, hypertension, mild dementia, presenting to the emergency department via EMS with complaints of weakness and frequent urination. According to patient's daughter, the last time she presented like this she had a UTI. She does get these frequently. Patient does live with daughter. Patient denies pain anywhere. She denies recent fever, chest pain, shortness of breath, cough, abdominal pain, vomiting. Patient has no other complaints. Upon arrival to the ER, vitals are stable. - Related Data Home Medications Medication Instructions Recorded Confirmed Apixaban [Eliquis] 5 mg PO BID 08/20/19 08/20/19 Cranberry 650mg 650 mg PO QAM 08/20/19 08/20/19 Gabapentin 600 mg PO BID 08/20/19 08/20/19 Latanoprost [Xalatan 0.005%] 1 drop BOTH EYES HS 08/20/19 08/20/19 Levothyroxine Sodium [Synthroid] 50 mcg PO QAM 08/20/19 08/20/19 Methenamine Hippurate 1 gm PO BID 08/20/19 08/20/19 Metoprolol Succinate [Toprol XL] 12.5 mg PO BID 08/20/19 08/20/19 Rosuvastatin [Crestor] 20 mg PO HS 08/20/19 08/20/19 Sertraline [Zoloft] 25 mg PO BID 08/20/19 08/20/19 predniSONE 2.5 mg PO QAM 08/20/19 08/20/19 Previous Rx's Medication Instructions Recorded Cefdinir [Omnicef] 300 mg PO BID #6 cap 08/23/19 amLODIPine BESYLATE 2.5 mg PO HS #0 08/23/19 Cephalexin [Keflex] 500 mg PO BID 7 Days #14 cap 09/28/19 Allergies Allergy/AdvReac Type Severity Reaction Status Date / Time No Known Allergies Allergy Verified 08/20/19 17:34 Review of Systems ROS Statement: Those systems with pertinent positive or pertinent negative responses have been documented in the HPI. ROS Other: All systems not noted in ROS Statement are negative. Past Medical History Past Medical History: Atrial Fibrillation, Coronary Artery Disease (CAD), CVA/TIA, Hyperlipidemia, Hypertension, Thyroid Disorder History of Any Multi-Drug Resistant Organisms: None Reported Past Surgical History: No Surgical Hx Reported Past Psychological History: No Psychological Hx Reported Smoking Status: Never smoker Past Alcohol Use History: None Reported Past Drug Use History: None Reported General Exam - General Exam Comments Initial Comments: GENERAL: Patient appears fatigued, and in no acute distress. HEAD: Atraumatic, normocephalic. EYES: Pupils equal round and reactive to light, extraocular movements intact, sclera anicteric, conjunctiva are normal. ENT: TMs normal, nares patent, oropharynx clear without exudates. Moist mucous membranes. NECK: Normal range of motion, supple without lymphadenopathy or JVD. LUNGS: Breath sounds clear to auscultation bilaterally and equal. No wheezes rales or rhonchi. HEART: Regular rate and rhythm without murmurs, rubs or gallops. ABDOMEN: Soft, nontender, normoactive bowel sounds. No guarding, no rebound. No masses appreciated. : Deferred EXTREMITIES: Normal range of motion, no pitting or edema. No clubbing or cyanosis. NEUROLOGICAL: Cranial nerves II through XII grossly intact. Normal speech, normal gait. PSYCH: Normal mood, normal affect. SKIN: Warm, Dry, normal turgor, no rashes or lesions noted. Limitations: altered mental status Course Vital Signs 09/28/19 09/28/19 09/28/19 06:29 08:00 09:00 Temperature 97.7 F Pulse Rate 74 72 72 Respiratory 16 18 18 Rate Blood Pressure 170/97 174/94 170/89 O2 Sat by Pulse 96 99 99 Oximetry EKG Findings - EKG Comments: EKG Findings:: Sinus rhythm with premature supraventricular complexes with occasional premature ventricular complexes, nonspecific intraventricular block. No signs of acute ischemia. EKG is similar to previous on 08/20/2019. Ventricular rate 74, purulent arrival 144, QTC 468. Medical Decision Making - Medical Decision Making Patient is an 84-year-old female presenting with weakness, frequent urination 1 day. Vitals are stable, afebrile. Lab work shows no acute findings, troponin is normal. Urine shows evidence of infection. Urine culture is pending. EKG shows no signs of acute ischemia. Patient was given fluids as well as Rocephin. She reports improvement. She is drinking, eating, and calm her stating normally in the ER. Patient is stable for discharge and will be continued on outpatient antibiotics. Patient will follow up with her PCP tomorrow. Patient is in agreement with this plan of care. Patient's daughter was also informed of the planned and is in agreement. Return parameters were discussed with the patient and she verbalized understanding. Case discussed with Dr. Ferrara. - Lab Data Result diagrams: 09/28/19 06:38 09/28/19 06:38 Lab Results 09/28/19 09/28/19 09/28/19 Range/Units 06:38 06:38 06:38 WBC 4.6 (3.8-10.6) k/uL RBC 4.17 (3.80-5.40) m/uL Hgb 13.0 (11.4-16.0) gm/dL Hct 38.3 (34.0-46.0) % MCV 91.8 (80.0-100.0) fL MCH 31.1 (25.0-35.0) pg MCHC 33.9 (31.0-37.0) g/dL RDW 13.1 (11.5-15.5) % Plt Count 170 (150-450) k/uL Neutrophils % 56 % Lymphocytes % 31 % Monocytes % 7 % Eosinophils % 4 % Basophils % 1 % Neutrophils # 2.6 (1.3-7.7) k/uL Lymphocytes # 1.4 (1.0-4.8) k/uL Monocytes # 0.3 (0-1.0) k/uL Eosinophils # 0.2 (0-0.7) k/uL Basophils # 0.0 (0-0.2) k/uL PT 10.3 (9.0-12.0) sec INR 1.0 (<1.2) APTT 25.7 (22.0-30.0) sec Sodium 137 (137-145) mmol/L Potassium 4.0 (3.5-5.1) mmol/L Chloride 107 (98-107) mmol/L Carbon Dioxide 26 (22-30) mmol/L Anion Gap 4 mmol/L BUN 19 H (7-17) mg/dL Creatinine 0.79 (0.52-1.04) mg/dL Est GFR (CKD-EPI)AfAm 80 (>60 ml/min/1.73 sqM) Est GFR (CKD-EPI)NonAf 70 (>60 ml/min/1.73 sqM) Glucose 83 (74-99) mg/dL Plasma Lactic Acid Albin (0.7-2.0) mmol/L Calcium 8.6 (8.4-10.2) mg/dL Total Bilirubin 0.8 (0.2-1.3) mg/dL AST 32 (14-36) U/L ALT 11 (4-34) U/L Alkaline Phosphatase 51 (38-126) U/L Troponin I (0.000-0.034) ng/mL Total Protein 6.3 (6.3-8.2) g/dL Albumin 3.3 L (3.5-5.0) g/dL Urine Color Urine Appearance (Clear) Urine pH (5.0-8.0) Ur Specific [place] (1.001-1.035) Urine Protein (Negative) Urine Glucose (UA) (Negative) Urine Ketones (Negative) Urine Blood (Negative) Urine Nitrite (Negative) Urine Bilirubin (Negative) Urine Urobilinogen (<2.0) mg/dL Ur Leukocyte Esterase (Negative) Urine RBC (0-5) /hpf Urine WBC (0-5) /hpf Urine Bacteria (None) /hpf Urine Mucus (None) /hpf 09/28/19 09/28/19 09/28/19 Range/Units 06:38 06:38 07:03 WBC (3.8-10.6) k/uL RBC (3.80-5.40) m/uL Hgb (11.4-16.0) gm/dL Hct (34.0-46.0) % MCV (80.0-100.0) fL MCH (25.0-35.0) pg MCHC (31.0-37.0) g/dL RDW (11.5-15.5) % Plt Count (150-450) k/uL Neutrophils % % Lymphocytes % % Monocytes % % Eosinophils % % Basophils % % Neutrophils # (1.3-7.7) k/uL Lymphocytes # (1.0-4.8) k/uL Monocytes # (0-1.0) k/uL Eosinophils # (0-0.7) k/uL Basophils # (0-0.2) k/uL PT (9.0-12.0) sec INR (<1.2) APTT (22.0-30.0) sec Sodium (137-145) mmol/L Potassium (3.5-5.1) mmol/L Chloride (98-107) mmol/L Carbon Dioxide (22-30) mmol/L Anion Gap mmol/L BUN (7-17) mg/dL Creatinine (0.52-1.04) mg/dL Est GFR (CKD-EPI)AfAm (>60 ml/min/1.73 sqM) Est GFR (CKD-EPI)NonAf (>60 ml/min/1.73 sqM) Glucose (74-99) mg/dL Plasma Lactic Acid Albin 0.9 (0.7-2.0) mmol/L Calcium (8.4-10.2) mg/dL Total Bilirubin (0.2-1.3) mg/dL AST (14-36) U/L ALT (4-34) U/L Alkaline Phosphatase (38-126) U/L Troponin I <0.012 (0.000-0.034) ng/mL Total Protein (6.3-8.2) g/dL Albumin (3.5-5.0) g/dL Urine Color Light Red Urine Appearance Cloudy H (Clear) Urine pH 6.5 (5.0-8.0) Ur Specific [place] 1.019 (1.001-1.035) Urine Protein 3+ H (Negative) Urine Glucose (UA) Negative (Negative) Urine Ketones Negative (Negative) Urine Blood Large H (Negative) Urine Nitrite Negative (Negative) Urine Bilirubin Negative (Negative) Urine Urobilinogen <2.0 (<2.0) mg/dL Ur Leukocyte Esterase Large H (Negative) Urine RBC >182 H (0-5) /hpf Urine WBC >182 H (0-5) /hpf Urine Bacteria Rare H (None) /hpf Urine Mucus Few H (None) /hpf Disposition Clinical Impression: UTI (urinary tract infection), Weakness Disposition: HOME SELF-CARE Condition: Stable Instructions (If sedation given, give patient instructions): Urinary Tract Infection in Women (ED) Additional Instructions: Please return to the Emergency Department if symptoms worsen or any other concerns. Take antibiotic as prescribed. Continue to increase fluid intake. Follow up with PCP tomorrow. Prescriptions: Cephalexin [Keflex] 500 mg PO BID 7 Days #14 cap Is patient prescribed a controlled substance at d/c from ED?: No Referrals: Weston James MD [Primary Care Provider] - 1-2 days
[2019-09-28 06:48] LABS: Basophils % (A) 1 %; Eosinophils # (A) 0.2 k/uL (0-0.7); Eosinophils % (A) 4 %; HCT 38.3 % (34.0-46.0); Lymphocytes # (A) 1.4 k/uL (1.0-4.8); Lymphocytes % (A) 31 %; MCH 31.1 pg (25.0-35.0); MCHC 33.9 g/dL (31.0-37.0); MCV 91.8 fL (80.0-100.0); Mean Platelet Volume 8.5; Monocytes # (A) 0.3 k/uL (0-1.0); Monocytes % (A) 7 %; Neutrophils # (A) 2.6 k/uL (1.3-7.7); Neutrophils % (A) 56 %; Platelet Count 170 k/uL (150-450); RBC 4.17 m/uL (3.80-5.40); RDW 13.1 % (11.5-15.5); WBC 4.6 k/uL (3.8-10.6)
[2019-09-28 07:00] LABS: Partial Thromboplastin Time 25.7 sec (22.0-30.0); Prothrombin Time 10.3 sec (9.0-12.0)
[2019-09-28 07:17] LABS: Albumin 3.3 g/dL (3.5-5.0); Calcium 8.6 mg/dL (8.4-10.2); Total Bilirubin 0.8 mg/dL (0.2-1.3); Total Protein 6.3 g/dL (6.3-8.2)
[2019-09-28 07:41] LABS: Appearance,Urine Cloudy (Clear); Bacteria,Urine Rare /hpf; Bilirubin,Urine Negative (Negative); Blood,Urine Large (Negative); Color,Urine Light Red; Glucose,Urine (UA) Negative (Negative); Ketones,Urine Negative (Negative); Leukocyte Esterase,Urine Large (Negative); Mucus,Urine Few /hpf; Nitrite,Urine Negative (Negative); PH, Urine 6.5 (5.0-8.0); Protein,Urine 3+ (Negative); RBC,Urine >182 /hpf (0-5); Specific Gravity,Urine 1.019 (1.001-1.035); Urobilinogen,Urine <2.0 mg/dL (<2.0); WBC,Urine >182 /hpf (0-5)
[2019-09-28] MEDS ORDERED: cefTRIAXone IN SWFI 1,000 MG/10 ML SYRINGE IVP STA (07:44)
--- NOTE | 2019-09-28 07:51 | XR ---
EXAMINATION TYPE: XR chest 2V DATE OF EXAM: 09/28/2019 COMPARISON: Prior chest 08/22/2019 HISTORY: Weakness and lethargy TECHNIQUE: Frontal and lateral views of the chest are obtained. FINDINGS: There is no focal air space opacity, pleural effusion, or pneumothorax seen. The cardiac silhouette size is stable. The osseous structures are intact. There are prominent lung volumes may be indicative of COPD. Thoracic spondylosis is present. There is a scoliosis. Aorta is dense. There a re overlying cardiac leads. IMPRESSION: No acute cardiopulmonary process.
[2019-09-28 09:04] VITALS: BP 170/89; PULSE 72; RESP 18
[2019-09-28] MEDS ORDERED: CEPHALEXIN 500MG STARTER PACK 4 CAP BTL PO STA (09:55)
== END 2019-09-28 10:03 | disposition home or self-care (01) ==
LOC: EC 06:26
DX: N39.0 Urinary tract infection, site not specified (principal); I48.91 Unspecified atrial fibrillation; I25.10 Atherosclerotic heart disease of native coronary artery without angina pectoris; E78.5 Hyperlipidemia, unspecified; I10 Essential (primary) hypertension; E07.9 Disorder of thyroid, unspecified; Z79.01 Long term (current) use of anticoagulants; Z79.51 Long term (current) use of inhaled steroids; Z79.890 Hormone replacement therapy; Z79.899 Other long term (current) drug therapy; Z86.73 Personal history of transient ischemic attack (TIA), and cerebral infarction without residual deficits
CPT/HCPCS: 36415; 93005; 80053; 83605; 84484; 85025; 85610; 85730; 81001; 87086; 71046; 99285; 96374; 96361 ×2; J0696

== ENCOUNTER 2019-09-28 12:52 | Inpatient (IN) | payer MEDICARE ==
[2019-09-28] MEDS ORDERED: ACETAMINOPHEN TAB 325 MG TAB PO PRN (13:20)
[2019-09-28] MEDS ORDERED: NALOXONE 0.4 MG/ML 1 ML VIAL IV PRN ×2 (13:20→14:07)
--- NOTE | 2019-09-28 13:36 | ED ---
Recheck HPI - General Stated Complaint: Weakness Time Seen by Provider: 09/28/19 12:55 Source: EMS Mode of arrival: EMS Limitations: no limitations - History of Present Illness Initial Comments: Patient is a 84-year-old female presenting to the emergency department via EMS with complaints of weakness, nausea. Patient was just discharged from the ER a few hours prior to this arrival and diagnosed with UTI. Patient states she was unable to take her oral medications at home and became nauseous. Patient denies any vomiting. She states she is continues to feel weak. She does have history of mild dementia and lives with her daughter. Patient reports no other changes. She has no complaints of pain. She denies shortness of breath, chest pain, cough. She has no other complaints at this time. Upon arrival to the ER, her vitals are stable. - Related Data Home Medications Medication Instructions Recorded Confirmed Apixaban [Eliquis] 5 mg PO BID 08/20/19 08/20/19 Cranberry 650mg 650 mg PO QAM 08/20/19 08/20/19 Gabapentin 600 mg PO BID 08/20/19 08/20/19 Latanoprost [Xalatan 0.005%] 1 drop BOTH EYES HS 08/20/19 08/20/19 Levothyroxine Sodium [Synthroid] 50 mcg PO QAM 08/20/19 08/20/19 Methenamine Hippurate 1 gm PO BID 08/20/19 08/20/19 Metoprolol Succinate [Toprol XL] 12.5 mg PO BID 08/20/19 08/20/19 Rosuvastatin [Crestor] 20 mg PO HS 08/20/19 08/20/19 Sertraline [Zoloft] 25 mg PO BID 08/20/19 08/20/19 predniSONE 2.5 mg PO QAM 08/20/19 08/20/19 Previous Rx's Medication Instructions Recorded Cefdinir [Omnicef] 300 mg PO BID #6 cap 08/23/19 amLODIPine BESYLATE 2.5 mg PO HS #0 08/23/19 Cephalexin [Keflex] 500 mg PO BID 7 Days #14 cap 09/28/19 Allergies Allergy/AdvReac Type Severity Reaction Status Date / Time No Known Allergies Allergy Verified 08/20/19 17:34 Review of Systems ROS Statement: Those systems with pertinent positive or pertinent negative responses have been documented in the HPI. ROS Other: All systems not noted in ROS Statement are negative. Past Medical History Past Medical History: Atrial Fibrillation, Coronary Artery Disease (CAD), CVA/TIA, Hyperlipidemia, Hypertension, Thyroid Disorder History of Any Multi-Drug Resistant Organisms: None Reported Past Surgical History: No Surgical Hx Reported Past Psychological History: No Psychological Hx Reported Smoking Status: Never smoker Past Alcohol Use History: None Reported Past Drug Use History: None Reported General Exam - General Exam Comments Initial Comments: GENERAL: Appears fatigued and in no acute distress. HEAD: Atraumatic, normocephalic. EYES: Pupils equal round and reactive to light, extraocular movements intact, sclera anicteric, conjunctiva are normal. ENT: TMs normal, nares patent, oropharynx clear without exudates. Moist mucous membranes. NECK: Normal range of motion, supple without lymphadenopathy or JVD. LUNGS: Breath sounds clear to auscultation bilaterally and equal. No wheezes rales or rhonchi. HEART: Irregular rate and rhythm without murmurs, rubs or gallops. ABDOMEN: Soft, nontender, normoactive bowel sounds. No guarding, no rebound. No masses appreciated. : Deferred EXTREMITIES: Normal range of motion, no pitting or edema. No clubbing or cyanosis. NEUROLOGICAL: Cranial nerves II through XII grossly intact. Normal speech, normal gait. PSYCH: Normal mood, normal affect. SKIN: Warm, Dry, normal turgor, no rashes or lesions noted. Limitations: no limitations Course Vital Signs 09/28/19 13:15 Temperature 97.6 F Pulse Rate 68 Respiratory 18 Rate Blood Pressure 159/119 O2 Sat by Pulse 98 Oximetry Medical Decision Making - Medical Decision Making Patient is an 84-year-old female here for her weakness, nausea. She was just discharged from the ER a few hours prior with UTI diagnosis. Patient states she is unable take her oral medications and became nauseous as she came back to the ER. Patient's exam is unremarkable other than looking fatigue. Patient will be started on fluids, Zofran for nausea. She denies any pain anywhere. Will continue Rocephin. Patient already received 1 g today. Patient will be admitted for UTI, dehydration, nausea. Patient was accepted by Dr. Pñea. Case discussed with Dr. Ferrara. Disposition Clinical Impression: Dehydration, UTI (urinary tract infection), Nausea Disposition: ADMITTED IP TO THIS HOSP Condition: Good Is patient prescribed a controlled substance at d/c from ED?: No Decision Date: 09/28/19 Decision Time: 13:36
[2019-09-28] MEDS: SODIUM CHLORIDE 0.9% 1,000 ML IV SCH (13:57)
[2019-09-28] MEDS: ONDANSETRON 4 MG/2 ML VIAL IVP PRN ×2 (13:57→22:22)
--- NOTE | 2019-09-28 14:20 | P.HPIM ---
History of Present Illness H&P Date: 09/28/19 Chief Complaint: Weakness 84-year-old female presenting to the emergency department via EMS with complaints of weakness, nausea. Due to her dementia history is limited at this time from the patient. It was mainly taken from the ER signout and the records. Patient was just discharged from the ER this morning after she was diagnosed with UTI because she was unable to take her oral medications at home due to nausea. No vomiting. She continues to feel weak. She lives with her daughter. Patient complained from some upper abdominal pain. No diarrhea, no urinary symptoms. No fevers or chills. No chest pain or shortness of breath. In the emergency department all of her vitals and laboratory evaluation was within normal limits. Patient will be admitted to the hospital for further evaluation and management for UTI. Review of Systems Complete review of system performed, pertinent positive per HPI, otherwise negative Past Medical History Past Medical History: Atrial Fibrillation, Coronary Artery Disease (CAD), CVA/TIA, Hyperlipidemia, Hypertension, Thyroid Disorder History of Any Multi-Drug Resistant Organisms: None Reported Past Surgical History: No Surgical Hx Reported Past Psychological History: No Psychological Hx Reported Smoking Status: Never smoker Past Alcohol Use History: None Reported Past Drug Use History: None Reported Medications and Allergies Home Medications Medication Instructions Recorded Confirmed Type Apixaban [Eliquis] 5 mg PO BID 08/20/19 08/20/19 History Cranberry 650mg 650 mg PO QAM 08/20/19 08/20/19 History Gabapentin 600 mg PO BID 08/20/19 08/20/19 History Latanoprost [Xalatan 0.005%] 1 drop BOTH EYES HS 08/20/19 08/20/19 History Levothyroxine Sodium [Synthroid] 50 mcg PO QAM 08/20/19 08/20/19 History Methenamine Hippurate 1 gm PO BID 08/20/19 08/20/19 History Metoprolol Succinate [Toprol XL] 12.5 mg PO BID 08/20/19 08/20/19 History Rosuvastatin [Crestor] 20 mg PO HS 08/20/19 08/20/19 History Sertraline [Zoloft] 25 mg PO BID 08/20/19 08/20/19 History predniSONE 2.5 mg PO QAM 08/20/19 08/20/19 History Cefdinir [Omnicef] 300 mg PO BID #6 cap 08/23/19 Rx amLODIPine BESYLATE 2.5 mg PO HS #0 08/23/19 08/20/19 Rx Cephalexin [Keflex] 500 mg PO BID 7 Days #14 cap 09/28/19 Rx Allergies Allergy/AdvReac Type Severity Reaction Status Date / Time No Known Allergies Allergy Verified 08/20/19 17:34 Physical Exam Vitals: Vital Signs Temp Pulse Resp BP Pulse Ox 09/28/19 13:15 97.6 F 68 18 159/119 98 Intake and Output 09/27/19 09/28/19 09/28/19 22:59 06:59 14:59 Other: Weight 60.645 kg Constitutional: No acute distress, conversant, pleasant Eyes:Anicteric sclerae, moist conjunctiva, no lid-lag, PERRLA, ENMT: Oropharynx clear, no erythema, exudates Neck: Supple, FROM, no masses, or JVD, No carotid bruits, No thyromegaly Lungs: Clear to auscultation, Clear to percussion, Normal respiratory effort, no accessory muscle use Cardiovascular: Heart regular in rate and rhythm, No murmurs, gallops, or rubs, No peripheral edema Abdominal: Soft, Nontender, no guarding, rebound or rigidity, Normoactive bowel sounds, No hepatomegaly, No splenomegaly, No palpable mass Skin: Normal temperature, tone, texture, turgor, no induration, No subcutaneous nodules, No rash, lesions, No ulcers Extremities: No digital cyanosis, No clubbing, Pedal pulses intact and symmetrical, Radial pulses intact and symmetrical, No calf tenderness Psychiatric: Alert and oriented to person, place and time, appropriate affect, intact judgement Neuro: Muscles Strength 5/5 in all 4 extremities, Sensation to light touch grossly present throughout, Cranial nerves II-XII grossly intact, no focal sensory deficits Assessment and Plan Plan: Adult failure to thrive Urinary tract infection General weakness HTN Atrial Fibrillation, Coronary Artery Disease (CAD), Hyperlipidemia IV fluids PT evaluation Tyenol prn Ceftriaxone 1gm IV daily Follow urine cx Resume rest of meds
[2019-09-28] MEDS: METHENAMINE HIPPURATE 1 GM PO SCH (22:08)
[2019-09-28] MEDS: GABAPENTIN 300 MG CAP PO SCH (22:21)
[2019-09-28] MEDS: METOPROLOL SUCCINATE (ER) 25 MG TAB.ER.24H PO SCH (22:22)
[2019-09-28] MEDS: ATORVASTATIN 40 MG TAB PO SCH (22:22)
[2019-09-28] MEDS: amLODIPine 2.5 MG TAB PO SCH (22:22)
[2019-09-28] MEDS: APIXABAN 5 MG TAB PO SCH (22:22)
[2019-09-28] MEDS: SERTRALINE 25 MG TAB PO SCH (22:29)
[2019-09-28] MEDS: LATANOPROST 0.005% OPHTH DROPS 2.5 ML BTL BOTH EYES SCH (22:29)
[2019-09-29] MEDS: SODIUM CHLORIDE 0.9% 1,000 ML IV SCH ×2 (03:00→19:46)
[2019-09-29] MEDS: LEVOTHYROXINE 50 MCG TAB PO SCH (05:16)
[2019-09-29] MEDS: APIXABAN 5 MG TAB PO SCH ×2 (08:13→21:44)
[2019-09-29] MEDS: METOPROLOL SUCCINATE (ER) 25 MG TAB.ER.24H PO SCH ×2 (08:14→21:43)
[2019-09-29] MEDS: GABAPENTIN 300 MG CAP PO SCH ×2 (08:14→21:43)
[2019-09-29] MEDS: SERTRALINE 25 MG TAB PO SCH ×2 (08:14→21:44)
[2019-09-29] MEDS: METHENAMINE HIPPURATE 1 GM PO SCH ×2 (08:15→21:44)
--- NOTE | 2019-09-29 11:00 | P.PN ---
Subjective Progress Note Date: 09/29/19 Principal diagnosis: Weakness Patient still having severe weakness, she is unable to get out of bed by herself. He is requiring a lot of assistance. No pain, shortness of breath. Objective - Vital Signs Vital signs: Vital Signs Temp 97.8 F 09/29/19 07:00 Pulse 54 L 09/29/19 07:00 Resp 18 09/29/19 07:00 BP 153/72 09/29/19 07:00 Pulse Ox 96 09/29/19 07:00 Intake & Output 09/28/19 09/29/19 09/29/19 18:59 06:59 18:59 Intake Total 480 Balance 480 Weight 60.645 kg 60.645 kg Intake: Oral 480 Other: Voiding Method Bedpan Incontinent # Voids 1 - Exam Constitutional: No acute distress, conversant, pleasant Eyes:Anicteric sclerae, moist conjunctiva, no lid-lag, PERRLA, ENMT: Oropharynx clear, no erythema, exudates Neck: Supple, FROM, no masses, or JVD, No carotid bruits, No thyromegaly Lungs: Clear to auscultation, Clear to percussion, Normal respiratory effort, no accessory muscle use Cardiovascular: Heart regular in rate and rhythm, No murmurs, gallops, or rubs, No peripheral edema Abdominal: Soft, Nontender, no guarding, rebound or rigidity, Normoactive bowel sounds, No hepatomegaly, No splenomegaly, No palpable mass Skin: Normal temperature, tone, texture, turgor, no induration, No subcutaneous nodules, No rash, lesions, No ulcers Extremities: No digital cyanosis, No clubbing, Pedal pulses intact and symmetrical, Radial pulses intact and symmetrical, No calf tenderness Psychiatric: Alert and oriented to person, place and time, appropriate affect, intact judgement Neuro: Muscles Strength 5/5 in all 4 extremities, Sensation to light touch grossly present throughout, Cranial nerves II-XII grossly intact, no focal sensory deficits Assessment and Plan Plan: Adult failure to thrive Urinary tract infection General weakness HTN Atrial Fibrillation, Coronary Artery Disease (CAD), Hyperlipidemia IV fluids PT evaluation Tyenol prn Ceftriaxone 1gm IV daily Follow urine cx Resume rest of meds
[2019-09-29] MEDS: ATORVASTATIN 40 MG TAB PO SCH (21:43)
[2019-09-29] MEDS: CEFDINIR 300 MG CAP PO SCH (21:44)
[2019-09-29] MEDS: amLODIPine 2.5 MG TAB PO SCH (21:44)
[2019-09-29] MEDS: LATANOPROST 0.005% OPHTH DROPS 2.5 ML BTL BOTH EYES SCH (21:49)
[2019-09-29] MEDS: HALOPERIDOL 2 MG TAB PO ONE (23:06)
[2019-09-30] MEDS: SODIUM CHLORIDE 0.9% 1,000 ML IV SCH ×2 (07:39→21:31)
[2019-09-30] MEDS: METHENAMINE HIPPURATE 1 GM PO SCH ×2 (07:40→21:26)
[2019-09-30] MEDS: APIXABAN 5 MG TAB PO SCH ×2 (07:46→21:23)
[2019-09-30] MEDS: CEFDINIR 300 MG CAP PO SCH ×2 (07:46→21:22)
[2019-09-30] MEDS: METOPROLOL SUCCINATE (ER) 25 MG TAB.ER.24H PO SCH ×2 (07:47→21:22)
[2019-09-30] MEDS: GABAPENTIN 300 MG CAP PO SCH ×2 (07:47→21:23)
[2019-09-30] MEDS: SERTRALINE 25 MG TAB PO SCH ×2 (07:47→21:23)
[2019-09-30] MEDS: LEVOTHYROXINE 50 MCG TAB PO SCH (07:47)
[2019-09-30] MEDS: ATORVASTATIN 40 MG TAB PO SCH (21:23)
[2019-09-30] MEDS: amLODIPine 2.5 MG TAB PO SCH (21:24)
[2019-09-30] MEDS: LATANOPROST 0.005% OPHTH DROPS 2.5 ML BTL BOTH EYES SCH (21:24)
[2019-09-30] MEDS: HALOPERIDOL 2 MG TAB PO ONE (22:12)
--- NOTE | 2019-09-30 22:19 | P.PN ---
Progress Note - Text Progress Note Date: 09/30/19 Presenting complaint: Weakness Interval history: History of present with weakness nausea. Found to be UTI. Today-sitting up in a chair. Continue banana. Intermittently she'll break off the tip of the banana and a piece of that on her face. Saying it's okay. Denies any pain. Review of systems: Was done for constitutional, cardiovascular, GI, pulmonary. relevant finding as above Active Medications Acetaminophen (Tylenol Tab) 650 mg PO Q6HR PRN PRN Reason: Mild Pain or Fever > 100.5 Amlodipine Besylate (Norvasc) 2.5 mg PO [facility] Last Admin: 09/30/19 21:24 Dose: 2.5 mg Documented by: Apixaban (Eliquis) 5 mg PO BID [facility] Last Admin: 09/30/19 21:23 Dose: 5 mg Documented by: Atorvastatin Calcium (Lipitor) 40 mg PO [facility] Last Admin: 09/30/19 21:23 Dose: 40 mg Documented by: Cefdinir (Omnicef) 300 mg PO BID [facility] Last Admin: 09/30/19 21:22 Dose: 300 mg Documented by: Gabapentin (Neurontin) 600 mg PO BID [facility] Last Admin: 09/30/19 21:23 Dose: 600 mg Documented by: Sodium Chloride (Saline 0.9%) 1,000 mls @ 75 mls/hr IV .[id number] [facility] Last Admin: 09/30/19 21:31 Dose: Not Given Documented by: Latanoprost (Xalatan 0.005%) 1 drops BOTH EYES [facility] Last Admin: 09/30/19 21:24 Dose: 1 drops Documented by: Levothyroxine Sodium (Synthroid) 50 mcg PO 0630 [facility] Last Admin: 09/30/19 07:47 Dose: 50 mcg Documented by: Metoprolol Succinate (Toprol Xl) 12.5 mg PO BID [facility] Last Admin: 09/30/19 21:22 Dose: 12.5 mg Documented by: Naloxone HCl (Narcan) 0.2 mg IV Q2M PRN PRN Reason: Opioid Reversal Naloxone HCl (Narcan) 0.2 mg IV Q2M PRN PRN Reason: Opioid Reversal Patient's Own ( Methenamine Hippurate [ Methenamine Hippurate] 1 Gm) 1 gm PO BID [facility] Last Admin: 09/30/19 21:26 Dose: Not Given Documented by: Ondansetron HCl (Zofran) 4 mg IVP Q8HR PRN PRN Reason: Nausea And Vomiting Last Admin: 09/28/19 22:22 Dose: 4 mg Documented by: Sertraline HCl (Zoloft) 25 mg PO BID [facility] Last Admin: 09/30/19 21:23 Dose: 25 mg Documented by: On examination: VITAL SIGNS: 98.5, 63, 16, 139/35, 97% on room air GENERAL APPEARANCE: Sitting upon a chair, comfortable, eating a banana HEENT: Normal external appearance of nose and ear. Oral cavity normal EYES: Pupils equal. Conjunctiva normal. NECK: JVD not raised. Mass not palpable. RESPIRATORY: Respiratory effort normal. Lungs clear to auscultation. CARDIOVASCULAR: First and second sounds normal. No edema. ABDOMEN: Soft. Liver and spleen not palpable. No tenderness. No mass palpable. PSYCHIATRY: Can only answer some simple questions INVESTIGATIONS, reviewed in the clinical context: These labs are from the presentation to the ER. From the previous visit COVID-19 PCR-not detected White count 4.9 UA positive for leukoesterase, WBC Urine culture negative. Assessment: Adult failure to thrive Acute Urinary tract infection from cystitis, POA -Severe cognitive impairment from underlying Alzheimer's dementia Medical debility HTN Paroxysmal Atrial Fibrillation, currently in sinus rhythm on anticoagulation Coronary Artery Disease (CAD), Hyperlipidemia Plan: Patient does need a three-day night stay to qualify to go to the F. We will complete a three-day course of oral antibiotic.
[2019-10-01] MEDS: LEVOTHYROXINE 50 MCG TAB PO SCH (05:31)
[2019-10-01] MEDS: SODIUM CHLORIDE 0.9% 1,000 ML IV SCH ×2 (08:09→21:19)
[2019-10-01] MEDS: METHENAMINE HIPPURATE 1 GM PO SCH ×2 (08:10→21:18)
[2019-10-01] MEDS: CEFDINIR 300 MG CAP PO SCH ×2 (08:15→21:13)
[2019-10-01] MEDS: METOPROLOL SUCCINATE (ER) 25 MG TAB.ER.24H PO SCH ×2 (08:15→21:14)
[2019-10-01] MEDS: SERTRALINE 25 MG TAB PO SCH ×2 (08:15→21:17)
[2019-10-01] MEDS: GABAPENTIN 300 MG CAP PO SCH ×2 (08:15→21:14)
[2019-10-01] MEDS: APIXABAN 5 MG TAB PO SCH ×2 (08:15→21:17)
[2019-10-01 19:51] VITALS: RESP 18
[2019-10-01] MEDS: amLODIPine 2.5 MG TAB PO SCH (21:14)
[2019-10-01] MEDS: ATORVASTATIN 40 MG TAB PO SCH (21:17)
[2019-10-01] MEDS: LATANOPROST 0.005% OPHTH DROPS 2.5 ML BTL BOTH EYES SCH (21:19)
--- NOTE | 2019-10-01 22:48 | P.PN ---
Progress Note - Text Progress Note Date: 10/01/19 Presenting complaint: Weakness Interval history: History of present with weakness nausea. Found to be UTI. Today-sitting up in a chair. Eating better today. Comfortable. Review of systems: Was done for constitutional, cardiovascular, GI, pulmonary. relevant finding as above Active Medications Acetaminophen (Tylenol Tab) 650 mg PO Q6HR PRN PRN Reason: Mild Pain or Fever > 100.5 Amlodipine Besylate (Norvasc) 2.5 mg PO [facility] Last Admin: 10/01/19 21:14 Dose: 2.5 mg Documented by: Apixaban (Eliquis) 5 mg PO BID [facility] Last Admin: 10/01/19 21:17 Dose: 5 mg Documented by: Atorvastatin Calcium (Lipitor) 40 mg PO [facility] Last Admin: 10/01/19 21:17 Dose: 40 mg Documented by: Cefdinir (Omnicef) 300 mg PO BID [facility] Last Admin: 10/01/19 21:13 Dose: 300 mg Documented by: Gabapentin (Neurontin) 600 mg PO BID [facility] Last Admin: 10/01/19 21:14 Dose: 600 mg Documented by: Sodium Chloride (Saline 0.9%) 1,000 mls @ 75 mls/hr IV .[id number] [facility] Last Admin: 10/01/19 21:19 Dose: Not Given Documented by: Latanoprost (Xalatan 0.005%) 1 drops BOTH EYES [facility] Last Admin: 10/01/19 21:19 Dose: 1 drops Documented by: Levothyroxine Sodium (Synthroid) 50 mcg PO 0630 [facility] Last Admin: 10/01/19 05:31 Dose: 50 mcg Documented by: Metoprolol Succinate (Toprol Xl) 12.5 mg PO BID [facility] Last Admin: 10/01/19 21:14 Dose: 12.5 mg Documented by: Naloxone HCl (Narcan) 0.2 mg IV Q2M PRN PRN Reason: Opioid Reversal Naloxone HCl (Narcan) 0.2 mg IV Q2M PRN PRN Reason: Opioid Reversal Patient's Own ( Methenamine Hippurate [ Methenamine Hippurate] 1 Gm) 1 gm PO BID [facility] Last Admin: 10/01/19 21:18 Dose: Not Given Documented by: Ondansetron HCl (Zofran) 4 mg IVP Q8HR PRN PRN Reason: Nausea And Vomiting Last Admin: 09/28/19 22:22 Dose: 4 mg Documented by: Sertraline HCl (Zoloft) 25 mg PO BID [facility] Last Admin: 10/01/19 21:17 Dose: 25 mg Documented by: On examination: VITAL SIGNS: 98 7, 71, 16, 125/78, 97% on room air GENERAL APPEARANCE: Sitting upon a chair, comfortable, HEENT: Normal external appearance of nose and ear. Oral cavity normal EYES: Pupils equal. Conjunctiva normal. NECK: JVD not raised. Mass not palpable. RESPIRATORY: Respiratory effort normal. Lungs clear to auscultation. CARDIOVASCULAR: First and second sounds normal. No edema. ABDOMEN: Soft. Liver and spleen not palpable. No tenderness. No mass palpable. PSYCHIATRY: Can only answer some simple questions INVESTIGATIONS, reviewed in clinical context: These labs are from the presentation to the ER. From the previous visit COVID-19 PCR-not detected White count 4.9 UA positive for leukoesterase, WBC Urine culture negative. Assessment: Adult failure to thrive Acute Urinary tract infection from cystitis, POA -Severe cognitive impairment from underlying Alzheimer's dementia Medical debility HTN Paroxysmal Atrial Fibrillation, currently in sinus rhythm on anticoagulation Coronary Artery Disease (CAD), Hyperlipidemia Plan: Patient on Omnicef. Pending to go to ECF. Check labs in the morning. DC IV fluids later today.
[2019-10-02] MEDS: LEVOTHYROXINE 50 MCG TAB PO SCH (05:51)
[2019-10-02] MEDS: SERTRALINE 25 MG TAB PO SCH (07:04)
[2019-10-02] MEDS: APIXABAN 5 MG TAB PO SCH (07:04)
[2019-10-02] MEDS: METOPROLOL SUCCINATE (ER) 25 MG TAB.ER.24H PO SCH (07:04)
[2019-10-02] MEDS: GABAPENTIN 300 MG CAP PO SCH (07:04)
[2019-10-02] MEDS: CEFDINIR 300 MG CAP PO SCH (07:04)
[2019-10-02] MEDS: METHENAMINE HIPPURATE 1 GM PO SCH (07:05)
[2019-10-02 07:16] VITALS: BP 144/62; PULSE 70; TEMP 97.4
[2019-10-02 08:55] LABS: HCT 36.7 % (34.0-46.0); HGB 12.4 gm/dL (11.4-16.0); MCH 31.3 pg (25.0-35.0); MCHC 33.8 g/dL (31.0-37.0); MCV 92.6 fL (80.0-100.0); Mean Platelet Volume 8.6; Platelet Count 175 k/uL (150-450); RBC 3.96 m/uL (3.80-5.40); WBC 4.7 k/uL (3.8-10.6)
[2019-10-02 09:12] LABS: African American GFR (CKD) >90 (>60 ml/min/1.73 sqM); Anion Gap 6 mmol/L; Blood Urea Nitrogen 12 mg/dL (7-17); Calcium 8.6 mg/dL (8.4-10.2); Carbon Dioxide 31 mmol/L (22-30); Chloride 101 mmol/L (98-107); Glucose 83 mg/dL (74-99); Non-African American GFR(CKD) 80 (>60 ml/min/1.73 sqM); Potassium 3.7 mmol/L (3.5-5.1); Sodium 138 mmol/L (137-145)
--- NOTE | 2019-10-02 13:17 | P.DS ---
Providers Date of admission: 09/29/19 10:54 Expected date of discharge: 10/02/19 Attending physician: Jagdeep Ambrosio Primary care physician: Weston James MD Hospital Course: Presenting complaint: Weakness Interval history: History of present with weakness nausea. Found to be UTI. Today-sitting up. Comfortable. diet-tolerated On examination: VITAL SIGNS:97.4, 70, 18, 144/72 GENERAL APPEARANCE: Sitting upon a chair, comfortable, HEENT: Normal external appearance of nose and ear. Oral cavity normal EYES: Pupils equal. Conjunctiva normal. NECK: JVD not raised. Mass not palpable. RESPIRATORY: Respiratory effort normal. Lungs clear to auscultation. CARDIOVASCULAR: First and second sounds normal. No edema. ABDOMEN: Soft. Liver and spleen not palpable. No tenderness. No mass palpable. PSYCHIATRY: Can only answer some simple questions INVESTIGATIONS, reviewed in clinical context: white count 4.7, hemoglobin 12.7 potassium 3.7, creatinine 0.7 These labs are from the presentation to the ER. From the previous visit COVID-19 PCR-not detected White count 4.9 UA positive for leukoesterase, WBC Urine culture negative. Assessment: Adult failure to thrive Acute Urinary tract infection from cystitis, POA -Severe cognitive impairment from underlying Alzheimer's dementia Medical debility HTN Paroxysmal Atrial Fibrillation, currently in sinus rhythm on anticoagulation Coronary Artery Disease (CAD), Hyperlipidemia disposition: REPLACED BY [facility] Patient Condition at Discharge: Stable Plan - Discharge Summary Discharge Rx Participant: Yes New Discharge Prescriptions: New Cefdinir [Omnicef] 300 mg PO BID #4 cap Continue predniSONE 2.5 mg PO QAM Rosuvastatin [Crestor] 20 mg PO HS Metoprolol Succinate [Toprol XL] 12.5 mg PO BID Methenamine Hippurate 1 gm PO BID Levothyroxine Sodium [Synthroid] 50 mcg PO QAM Apixaban [Eliquis] 5 mg PO BID Latanoprost [Xalatan 0.005%] 1 drop BOTH EYES HS Sertraline [Zoloft] 25 mg PO BID amLODIPine BESYLATE 2.5 mg PO HS #0 Multivitamins, Thera [Multivitamin (formulary)] 1 tab PO DAILY Cranberry Fruit Extract [Cranberry] 600 mg PO DAILY Biotin 10,000 mcg PO DAILY Changed Gabapentin 600 mg PO HS #0 Discharge Medication List Apixaban [Eliquis] 5 mg PO BID 08/20/19 [History] Latanoprost [Xalatan 0.005%] 1 drop BOTH EYES HS 08/20/19 [History] Levothyroxine Sodium [Synthroid] 50 mcg PO QAM 08/20/19 [History] Methenamine Hippurate 1 gm PO BID 08/20/19 [History] Metoprolol Succinate [Toprol XL] 12.5 mg PO BID 08/20/19 [History] Rosuvastatin [Crestor] 20 mg PO HS 08/20/19 [History] Sertraline [Zoloft] 25 mg PO BID 08/20/19 [History] predniSONE 2.5 mg PO QAM 08/20/19 [History] amLODIPine BESYLATE 2.5 mg PO HS #0 08/23/19 [Rx] Biotin 10,000 mcg PO DAILY 09/29/19 [History] Cranberry Fruit Extract [Cranberry] 600 mg PO DAILY 09/29/19 [History] Multivitamins, Thera [Multivitamin (formulary)] 1 tab PO DAILY 09/29/19 [History] Cefdinir [Omnicef] 300 mg PO BID #4 cap 10/01/19 [Rx] Gabapentin 600 mg PO HS #0 10/02/19 [Rx] Follow up Appointment(s)/Referral(s): Weston James MD [Primary Care Provider] - 1-2 days Merline Jenkins [NON-STAFF] - As Needed Patient Instructions/Handouts: Urinary Tract Infection in Women (DC)
== END 2019-10-02 14:41 | DRG 690 ==
LOC: EC 12:52 → 4SSUR 13:43 → OBSVTOIN 09-29 10:54
PROVIDERS: ADMIT Hospitalist; ATTEND Hospitalist
DX: N30.90 Cystitis, unspecified without hematuria (principal); G30.9 Alzheimer's disease, unspecified; I10 Essential (primary) hypertension; I25.10 Atherosclerotic heart disease of native coronary artery without angina pectoris; I48.0 Paroxysmal atrial fibrillation; F02.80 Dementia in other diseases classified elsewhere, unspecified severity, without behavioral disturbance, psychotic disturbance, mood disturbance, and anxiety; R62.7 Adult failure to thrive; E86.0 Dehydration; E78.5 Hyperlipidemia, unspecified; Z79.01 Long term (current) use of anticoagulants; Z79.890 Hormone replacement therapy; Z79.899 Other long term (current) drug therapy; Z86.73 Personal history of transient ischemic attack (TIA), and cerebral infarction without residual deficits; Z11.59 Encounter for screening for other viral diseases; R53.81 Other malaise
CPT/HCPCS: 36415; 71046; 80048; 80053; 81001; 83605; 84484; 85025; 85027; 85610; 85730; 87086; 87635; 93005; 96361; 96374; 99285